=== PATIENT | female | born 1960 | race Two or more races ===

== ENCOUNTER → 2019-06-08 | Outpatient (CLI) | payer MEDICARE, MEDICAID ==
[~2019-06-08] MED LIST: ALBUTEROL SULF 2.5 MG/0.5ML(0.5%) NEB SOLN NEB ONE; ALBUTEROL SULF 2.5 MG/0.5ML(0.5%) NEB SOLN ONE; BUMETANIDE 1mg/4ml VIAL (0.25mg/ml) ONE; BUMETANIDE 2.5mg/10ml (0.25 mg/ml) INJ IV ONE; CATHFLO ACTIVASE (ALTEPLASE) 2 MG VIAL IV ONE; POTASSIUM CHL 10 Meq TABLET PO ONE; POTASSIUM CHL 20 Meq TABLET PO ONE; metOLazone 5 MG TAB ONE; metOLazone 5 MG TAB PO ONE
[2019-06-08 13:20] VITALS: BP 106/67
== END | disposition home or self-care (01) ==
LOC: CHF HDHVI 09:43
PROVIDERS: ATTEND Internal Medicine Cardiovascular Disease
DX: I25.10 Atherosclerotic heart disease of native coronary artery without angina pectoris (principal); I50.9 Heart failure, unspecified; E11.9 Type 2 diabetes mellitus without complications; R05 Cough; E66.9 Obesity, unspecified
CPT/HCPCS: 94640; 96374; G0463; J2997; J3490; 96365; 96366

== ENCOUNTER → 2019-08-09 | Outpatient (CLI) | payer MEDICARE, MEDICAID ==
[~2019-08-09] MED LIST changes: -ALBUTEROL SULF 2.5 MG/0.5ML(0.5%) NEB SOLN NEB ONE; -ALBUTEROL SULF 2.5 MG/0.5ML(0.5%) NEB SOLN ONE; +AMIO200T33 PO; +APIX5TAB OR; +BACITRACIN TOP OINT 1 UD PKG TOP ONE; +BUDE1SUS9; +BUME1TAB28 PO; -BUMETANIDE 1mg/4ml VIAL (0.25mg/ml) ONE; -BUMETANIDE 2.5mg/10ml (0.25 mg/ml) INJ IV ONE; -CATHFLO ACTIVASE (ALTEPLASE) 2 MG VIAL IV ONE; +CYANOCOBALAMIN (B-12) 1000 MCG/1 ML VIAL IM ONE; +CYANOCOBALAMIN (B-12) 1000 MCG/1 ML VIAL ONE; +CYCL0.05 EACHEYE; +CYCL10TA6 PO; +DOCU100C8 PO; +FOLI1TAB51 PO; +GABA300C10 PO; +HYDR-531 PO; +INSLISPI SC; +INSU100I4 SC; +INSU1INJ5 SC; +LACT10SO3 PO; +LEVEMIR SC; +LIDO5DIS21 TOP; +LORA2TAB12 PO; +MAGN400T40 PO; +MELA5TAB16 PO; +METO2.5T11 PO; +MOME200A INH; +MONT10TA34 PO; +MONT5CHW17 PO; +MORP1TAB12 PO; +NATE120T PO; +PANT40TA2 PO; +POLY33504 GT; +POTA10TA32 PO; +POTA10TA51 PO; -POTASSIUM CHL 10 Meq TABLET PO ONE; -POTASSIUM CHL 20 Meq TABLET PO ONE; +PRAM0.252 PO; +PRAM1TAB2 PO; +PREG100C PO; +PROM1SUP4 PO; +SENN8.6C PO; +TORS100T12 PO; +TORS20TA19 PO; +TRAZ100T3 PO; +TRAZ50TA2 PO; +ZOLP10TA6 PO; +[UNRECOGNIZED DRUG - CODE] IV; -metOLazone 5 MG TAB ONE; -metOLazone 5 MG TAB PO ONE
--- NOTE | 2019-08-09 10:30 | NUR ---
PT. TO CHF CLINIC FOR LABS AND RAMOS CATH DRESSING CHANGE PER PROTOCOL. PT. WITH 7.8 LB WT LOSS SINCE LAST VISIT AND CONTINUES TO FEEL BETTER. MD ORDERS RECEIVED AND CARRIED OUT. SEE NSG ORDERS.
--- NOTE | 2019-08-09 10:52 | NUR ---
MEDS: PT. MEDICATED WITH VIT. B12 1000MCG IM RT. DELT. PER MD ORDER.
--- NOTE | 2019-08-09 10:55 | NUR ---
LABS DRAWN AND SENT PER MD ORDER.
--- NOTE | 2019-08-09 11:00 | NUR ---
Port Needle Dressing Change Port Needle Dressing Change provided. See e-MAR for medications given during this visit. Vital signs stable. Pt tolerated procedure well. BACITRACIN OINTMENT APPLIED TO LATERAL ASPECT SCAB AREA PT. RECONNECTED TO HER HOME DOBUTAMINE DRIP RX'D BY OF [facility]. NO OBVIOUS SIGNS OR SYMPTOMS OF INFECTION NOTED.PT RESTARTED ON HER HOME DOBUTAMINE DRIP PER MD ORDER.
[2019-08-09 11:16] VITALS: BP 102/62
--- NOTE | 2019-08-09 11:16 | NUR ---
Discharge Instructions See e-MAR for any mediations given with this visit. Patient education given on disease process. Patient verbalized understanding. Previous labs reviewed. Patient discharged in stable condition with after care instructions and follow up appointment. PT. TO RTC IN ONE WEEK FOR MD ORDER.
[2019-08-09 12:39] LABS: Eosinophils # (auto) 0.1 10 ^3/uL (0-0.8); Hemoglobin 10.6 g/dL (12.2-16.2); Nucleated Red Blood Cells % 0.1 %
[2019-08-09 12:42] LABS: Basophils # (auto) 0.1 10 ^3/uL (0-0.2); Basophils % (auto) 0.9 % (0.0-2.0); Eosinophils % (auto) 2.6 % (0.0-7.0); Hematocrit 33.4 % (36.0-46.0); Lymphocytes # (auto) 0.6 10 ^3/uL (0.4-5.4); Lymphocytes % (auto) 11.1 % (10.0-50.0); Mean Corpuscular Hemoglobin 22.7 pg (28.0-32.0); Mean Corpuscular Hgb Conc. 31.6 g/dL (32.0-36.0); Mean Corpuscular Volume 71.7 fL (80.0-100.0); Monocytes # (auto) 0.8 10 ^3/uL (0-1.3); Monocytes % (auto) 13.4 % (0.0-12.0); Neutrophils # (auto) 4.1 10 ^3/uL (1.6-8.6); Platelet Count (auto) 131 10^3/uL (140-450); Red Blood Cells 4.66 10^6/uL (4.0-5.20); Red Cell Distribution Width 19.8 % (11.8-14.3); White Blood Cell 5.7 10^3/uL (4.4-10.8)
[2019-08-09 12:49] LABS: BUN/Creatinine Ratio 34.5; Calcium 9.3 mg/dL (8.5-10.1); Potassium 3.2 mmol/L (3.5-5.1)
== END | disposition home or self-care (01) ==
LOC: LAB 10:23 → MERGE 10:23
PROVIDERS: ATTEND Internal Medicine Cardiovascular Disease
DX: D64.9 Anemia, unspecified (principal); I13.0 Hypertensive heart and chronic kidney disease with heart failure and stage 1 through stage 4 chronic kidney disease, or unspecified chronic kidney disease; E11.22 Type 2 diabetes mellitus with diabetic chronic kidney disease; N18.3 Chronic kidney disease, stage 3 (moderate); I50.42 Chronic combined systolic (congestive) and diastolic (congestive) heart failure; I25.10 Atherosclerotic heart disease of native coronary artery without angina pectoris; F41.9 Anxiety disorder, unspecified; J44.9 Chronic obstructive pulmonary disease, unspecified; F32.9 Major depressive disorder, single episode, unspecified; E11.21 Type 2 diabetes mellitus with diabetic nephropathy; E11.42 Type 2 diabetes mellitus with diabetic polyneuropathy; M81.0 Age-related osteoporosis without current pathological fracture; G89.4 Chronic pain syndrome; M19.90 Unspecified osteoarthritis, unspecified site; Z79.01 Long term (current) use of anticoagulants; Z79.4 Long term (current) use of insulin; Z79.84 Long term (current) use of oral hypoglycemic drugs; Z87.891 Personal history of nicotine dependence; Z79.899 Other long term (current) drug therapy; Z90.710 Acquired absence of both cervix and uterus
CPT/HCPCS: 36415; 80048; 85025; 96372; G0463; J3420

== ENCOUNTER → 2019-09-18 | Outpatient (CLI) | payer MEDICARE, MEDICAID ==
[~2019-09-18] MED LIST changes: -BACITRACIN TOP OINT 1 UD PKG TOP ONE; -BUDE1SUS9; +BUMETANIDE 1mg/4ml VIAL (0.25mg/ml) ONE; +BUMETANIDE 2.5mg/10ml (0.25 mg/ml) INJ IV ONE; -CYCL10TA6 PO; +CYCL1TAB18 PO; -INSU100I4 SC; -INSU1INJ5 SC; +LORA2TAB10 PO; -LORA2TAB12 PO; -MOME200A INH; -POTA10TA32 PO; +POTA10TA79 PO; +POTASSIUM CHL 10 Meq TABLET PO ONE; +POTASSIUM CHL 20 Meq TABLET PO ONE; +PROM1SUP4 IV; -PROM1SUP4 PO; -TRAZ50TA2 PO
[2019-09-18 17:10] VITALS: BP 107/61
== END | disposition home or self-care (01) ==
LOC: CHF HDHVI 14:58 → MERGE 14:58
PROVIDERS: ATTEND Internal Medicine Cardiovascular Disease
DX: I13.0 Hypertensive heart and chronic kidney disease with heart failure and stage 1 through stage 4 chronic kidney disease, or unspecified chronic kidney disease (principal); E11.22 Type 2 diabetes mellitus with diabetic chronic kidney disease; N18.9 Chronic kidney disease, unspecified; I50.42 Chronic combined systolic (congestive) and diastolic (congestive) heart failure; E87.6 Hypokalemia; R53.83 Other fatigue; G89.29 Other chronic pain; M81.0 Age-related osteoporosis without current pathological fracture; F41.9 Anxiety disorder, unspecified; I25.10 Atherosclerotic heart disease of native coronary artery without angina pectoris; J44.9 Chronic obstructive pulmonary disease, unspecified; F32.9 Major depressive disorder, single episode, unspecified; E11.42 Type 2 diabetes mellitus with diabetic polyneuropathy; M19.90 Unspecified osteoarthritis, unspecified site; Z79.899 Other long term (current) drug therapy; Z90.710 Acquired absence of both cervix and uterus; Z79.01 Long term (current) use of anticoagulants; Z79.4 Long term (current) use of insulin; Z79.82 Long term (current) use of aspirin; Z87.891 Personal history of nicotine dependence
CPT/HCPCS: 96372; 96374; G0463; J1642; J3420; J3490

== ENCOUNTER → 2019-10-02 | Outpatient (CLI) | payer MEDICARE, MEDICAID ==
[~2019-10-02] MED LIST changes: -BUMETANIDE 1mg/4ml VIAL (0.25mg/ml) ONE; -BUMETANIDE 2.5mg/10ml (0.25 mg/ml) INJ IV ONE; -CYANOCOBALAMIN (B-12) 1000 MCG/1 ML VIAL IM ONE; -CYANOCOBALAMIN (B-12) 1000 MCG/1 ML VIAL ONE; +CYCL10TA6 PO; -CYCL1TAB18 PO; -LORA2TAB10 PO; +LORA2TAB12 PO; +POTA10TA32 PO; -POTA10TA79 PO; -POTASSIUM CHL 10 Meq TABLET PO ONE; -POTASSIUM CHL 20 Meq TABLET PO ONE
--- NOTE | 2019-10-02 13:39 | NUR ---
CHF PT ARRIVED TO THE CHF CLINIC FOR WEEKLY PORT CHANGE EVAL AND F/U. A/OX3. AMBULATORY WITH WALKER. PT IS CONTINUALLY FALLING ASLEEP IN CHAIR DURING VISIT AND ASSESSMENT. STATES ITS DUE TO NOT GETTING ENOUGH SLEEP DUE TO CHILDREN IN THE HOME. 8 LB INCREASE IN WT SINCE LAST VISIT ON 09/25/19. PT ALSO VERBALIZED THAT SHE HAD A FALL OUT OF BED A FEW DAYS AGO AND THAT SHE IS HAVING SOME L LEG AND HIP PAIN.
--- NOTE | 2019-10-02 13:48 | NUR ---
Elias Cath Removal Kc needle D/C'd. See e-MAR for medications given during this visit. Sterile occlusive dressing to site. Patient tolerated procedure well. Site benign NOTE REMOVED BY DEBRA WADSWORTH
--- NOTE | 2019-10-02 13:59 | NUR ---
Elias Cath Insertion 20 gauge Elias Cath inserted using sterile technique in the R upper chest with occlusive dressing over barr needle. Patient tolerated procedure well. Ordered labs drawn and sent. See e-MAR for medications given during this visit. DRESSING HAS DATE TIME AND INITIAL. NOTE INSERTED BY DEBRA WADSWORTH
[2019-10-02 14:19] VITALS: BP 93/57
--- NOTE | 2019-10-02 14:19 | NUR ---
Discharge Instructions See e-MAR for any mediations given with this visit. Patient education given on disease process. Patient verbalized understanding. Previous labs reviewed. Patient discharged in stable condition with after care instructions and follow up appointment. PT TO SEE MD GARCIA DIRECTLY AFTER LEAVING CHF CLINIC FOR EVAL AND TX. ESCORTED TO VISIT BY ANEESH WADSWORTH
[2019-10-02 14:43] LABS: Basophils # (auto) 0.1 10 ^3/uL (0-0.2); Eosinophils # (auto) 0.1 10 ^3/uL (0-0.8); Hematocrit 33.3 % (36.0-46.0); Hemoglobin 10.1 g/dL (12.2-16.2); Lymphocytes # (auto) 0.6 10 ^3/uL (0.4-5.4); Monocytes # (auto) 0.9 10 ^3/uL (0-1.3); Neutrophils # (auto) 6.1 10 ^3/uL (1.6-8.6); Nucleated Red Blood Cells % 0.1 %
[2019-10-02 14:44] LABS: Basophils % (auto) 0.7 % (0.0-2.0); Eosinophils % (auto) 1.5 % (0.0-7.0); Lymphocytes % (auto) 7.4 % (10.0-50.0); Mean Corpuscular Hemoglobin 21.1 pg (28.0-32.0); Mean Corpuscular Hgb Conc. 30.2 g/dL (32.0-36.0); Mean Corpuscular Volume 69.6 fL (80.0-100.0); Monocytes % (auto) 11.3 % (0.0-12.0); Neutrophils % (auto) 79.1 % (37.0-80.0); Platelet Count (auto) 108 10^3/uL (140-450); Red Blood Cells 4.78 10^6/uL (4.0-5.20); White Blood Cell 7.8 10^3/uL (4.4-10.8)
[2019-10-02 14:47] LABS: Red Cell Distribution Width 20.3 % (11.8-14.3)
[2019-10-02 15:21] LABS: Magnesium 2.8 mg/dL (1.6-2.6); Potassium 5.2 mmol/L (3.5-5.1)
== END | disposition home or self-care (01) ==
LOC: CHF HDHVI 13:42 → MERGE 13:42
PROVIDERS: ATTEND Internal Medicine Cardiovascular Disease
DX: M16.11 Unilateral primary osteoarthritis, right hip (principal); M85.88 Other specified disorders of bone density and structure, other site; D64.9 Anemia, unspecified; R00.2 Palpitations; E87.6 Hypokalemia; E11.42 Type 2 diabetes mellitus with diabetic polyneuropathy; I50.9 Heart failure, unspecified; R53.83 Other fatigue; R60.9 Edema, unspecified; G89.29 Other chronic pain; M79.662 Pain in left lower leg; W19.XXXA Unspecified fall, initial encounter; Y93.89 Activity, other specified; Y92.89 Other specified places as the place of occurrence of the external cause; Y99.8 Other external cause status
CPT/HCPCS: 36415; 73502; 73562; 82565; 83036; 83735; 84132; 84520; 85025; G0463

== ENCOUNTER 2019-11-20 12:26 | Inpatient (IN) | payer MEDICARE, MEDICAID ==
[~2019-11-20] VITALS: Ht 30.5 cm; Wt 194.0 kg
[~2019-11-20 12:26] MED LIST changes: -MONT5CHW17 PO; -POTA10TA51 PO; -PRAM0.252 PO; -PROM1SUP4 IV; +PROM1SUP4 PO; -TORS20TA19 PO
[2019-11-20] MEDS ORDERED: TRAZ50TA2 PO (15:37)
[2019-11-20] MEDS ORDERED: INSU1INJ5 SC (15:40)
[2019-11-20] MEDS ORDERED: DEXTROSE (50%) 50ML SYRG IV PRN (15:45)
[2019-11-20] MEDS ORDERED: NITROGLYCERIN 0.4 MG SL TAB SL PRN (16:00)
[2019-11-20] MEDS ORDERED: MORPHINE SULF INJ 2 MG/ML SYRINGE 1ML IV PRN (16:00)
--- NOTE | 2019-11-20 16:00 | NUR ---
DIRECT ADMIT DIRECT ADMIT FROM DR GARCIA. PATIENT PLACED ON TELE #83 READING 83 BPM PACED, PLACED ON 3 L N/C, WEIGHED BY BEDSCALE. BED IN LOWEST/LOCKED POSITION, BED RAILS UP X2, CALL LIGHT WITHIN REACH. IV PLACED 22G RFA AFTER 2 ATTEMPTS, WOUND CARE PHOTOS TAKEN PER PROTOCOL, MRSA SWAB SENT TO LAB PER PROTOCOL. PATIENT INSTRUCTED ON POC, VERBALIZED UNDERSTANDING. WILL CONTINUE TO MONITOR Addendum: 11/20/19 at 1800 by ALE FELIPE RN RN 16 HAITIAN LUBIN CATHETER PLACED, UA SENT TO LAB
[2019-11-20] MEDS ORDERED: BUDE1SUS9 (16:03)
[2019-11-20] MEDS ORDERED: MOME200A INH (16:04)
[2019-11-20] MEDS ORDERED: INSU100I4 SC (16:06)
[2019-11-20 16:30] VITALS: BP 124/65
[2019-11-20] MEDS: HYDROmorphone HCL 2 MG/ML VL IV PRN (16:49)
[2019-11-20] MEDS: DOBUTamine 1000MCG/ML 250 ML IV SCH (16:52)
[2019-11-20] MEDS: FUROSEMIDE INJECTION 100 MG in SODIUM CHL 0.9% 100 ML IV SCH ×2 (16:52→21:57)
[2019-11-20] MEDS: ACCU-CHEK COMFORT CURVE STRIP VI SCH ×2 (17:05→22:29)
[2019-11-20] MEDS: InsuLIN REG 1unit/0.01ml Soln (100units/ml) SC SCH ×2 (17:06→22:27)
[2019-11-20 17:48] LABS: Basophils # (auto) 0 10 ^3/uL (0-0.2); Basophils % (auto) 0.9 % (0.0-2.0); Eosinophils # (auto) 0.1 10 ^3/uL (0-0.8); Lymphocytes # (auto) 0.6 10 ^3/uL (0.4-5.4); Monocytes # (auto) 0.6 10 ^3/uL (0-1.3); Neutrophils # (auto) 3.8 10 ^3/uL (1.6-8.6); Platelet Count (auto) 100 10^3/uL (140-450); Red Blood Cells 4.45 10^6/uL (4.0-5.20)
[2019-11-20 17:49] LABS: Eosinophils % (auto) 1.5 % (0.0-7.0); Hematocrit 30.8 % (36.0-46.0); Hemoglobin 9.5 g/dL (12.2-16.2); Lymphocytes % (auto) 11.8 % (10.0-50.0); Mean Corpuscular Hemoglobin 21.3 pg (28.0-32.0); Mean Corpuscular Hgb Conc. 30.7 g/dL (32.0-36.0); Mean Corpuscular Volume 69.4 fL (80.0-100.0); Neutrophils % (auto) 74.8 % (37.0-80.0); White Blood Cell 5.1 10^3/uL (4.4-10.8)
[2019-11-20 17:51] LABS: Red Cell Distribution Width 20.7 % (11.8-14.3)
[2019-11-20] MEDS ORDERED: INSULIN LANTUS (GLARGINE) 1 /0.01ml (100units/ml) SC SCH (18:00)
[2019-11-20 18:09] LABS: BUN/Creatinine Ratio 31.6
[2019-11-20] MEDS: PROMETHAZINE HCL 25 MG/ML 1ML IV PRN (18:13)
--- NOTE | 2019-11-20 19:30 | NUR ---
Opening Shift Note Assumed care of patient, awake and alert. No S/S of distress/SOB or pain. Jo patent and draining to yellow urine output. Instructed on POC and to call for assist PRN, patient verbalized understanding. Bed in lowest position, call light within reach, will continue to monitor for changes Q1hr and PRN.
[2019-11-20 20:00] VITALS: BP 110/66
[2019-11-20] MEDS: GABAPENTIN 300 MG CAP PO SCH (21:45)
[2019-11-20] MEDS: MORPHINE SULF 15mg ER tab PO SCH (21:46)
[2019-11-20] MEDS: APIXABAN 5 MG TAB PO SCH (21:47)
[2019-11-20] MEDS: traZODone HCL 50 MG TAB PO SCH (21:47)
[2019-11-20] MEDS: PRAMIPEXOLE DIHYDROCHLORIDE MO 0.25 MG TAB PO SCH (21:48)
[2019-11-20 22:00] VITALS: BP 110/66
[2019-11-20] MEDS: INSULIN LANTUS (GLARGINE) 1 /0.01ml (100units/ml) SC SCH (22:28)
[2019-11-20 23:26] LABS: Urine Bacteria FEW /hpf (None Seen); Urine Blood Negative /uL (Negative); Urine Hyaline Cast FEW /lpf (0 - 2); Urine WBC 6 /hpf (0 - 5)
[2019-11-21] MEDS: HYDROmorphone HCL 2 MG/ML VL IV PRN ×4 (00:09→19:39)
[2019-11-21] MEDS: PREGABALIN 25 MG CAP PO SCH ×2 (00:30→22:21)
[2019-11-21] MEDS: DOBUTamine 1000MCG/ML 250 ML IV SCH ×3 (00:46→19:40)
[2019-11-21] MEDS: FUROSEMIDE INJECTION 100 MG in SODIUM CHL 0.9% 100 ML IV SCH ×5 (02:43→22:19)
[2019-11-21 05:00] VITALS: BP 121/61
[2019-11-21] MEDS: GABAPENTIN 300 MG CAP PO SCH ×3 (06:16→22:22)
[2019-11-21] MEDS: InsuLIN REG 1unit/0.01ml Soln (100units/ml) SC SCH ×4 (06:16→22:00)
[2019-11-21] MEDS: ACCU-CHEK COMFORT CURVE STRIP VI SCH ×4 (06:16→22:22)
[2019-11-21] MEDS: PROMETHAZINE HCL 25 MG/ML 1ML IV PRN ×3 (06:37→22:15)
[2019-11-21 07:04] LABS: Calcium 8.5 mg/dL (8.5-10.1); Potassium 3.3 mmol/L (3.5-5.1)
[2019-11-21] MEDS ORDERED: POTASSIUM EFFERVESENT TAB 25 MEQ GT ONE (07:45)
[2019-11-21 09:00] VITALS: BP 109/76
[2019-11-21] MEDS: MORPHINE SULF 15mg ER tab PO SCH ×2 (10:26→22:22)
[2019-11-21] MEDS: AMIODARONE HCL 200 MG TAB PO SCH (10:26)
[2019-11-21] MEDS: MONTELUKAST SODIUM 10 MG TAB PO SCH (10:26)
[2019-11-21] MEDS: metOLazone 5 MG TAB PO SCH (10:27)
[2019-11-21] MEDS: APIXABAN 5 MG TAB PO SCH ×2 (10:28→22:22)
[2019-11-21] MEDS: POTASSIUM CHL 20 Meq TABLET PO SCH (10:29)
[2019-11-21 13:00] VITALS: BP 116/75
--- NOTE | 2019-11-21 13:30 | NUR ---
WOUND CARE NOTE: IN TO SEE PATIENT AT THIS TIME FOR SKIN INTEGRITY. PATIENT IS WELL KNOWN TO WOUND CARE TEAM, WITH MULTIPLE ADMISSIONS THIS YEAR FOR EXACERBATION OF HER CHF. SHE RETURNS TO [facility] DIRECT ADMIT WITH SAME DIAGNOSIS. CURRENT TASIA SCORE IS 18. PATIENT CAN SELF TURN/REPOSITION SELF, BUT HAS CHRONIC PRESSURE ULCER TO SACRUM FROM IMMOBILITY AT HOME. WOUND PHOTOS WERE TAKEN OF HER MANY WOUNDS AT TIME OF ADMIT BY BEDSIDE NURSE FOR REFERENCE. CanoP AIR MATTRESS ORDERED THIS AM. PATIENT TO BE PLACED, PENDING DELIVERY BY [facility]. PATIENT HAS EARLY STAGE 3 PRESSURE ULCER TO MEDIAL SACRUM, WITH SOME MACERATION NOTED TO PERIWOUND. PATIENT DENIES WEARING DIAPERS, BUT HAS SOME MASD NOTED TO THE AREA. APPLIED ZGUARD, OPTIFOAM GENTLE SACRAL DRESSING TO WOUND. SHE HAS SCABBED ABRASIONS TO THE RIGHT FOREARM, SCABBED/CLOSED SMALL VENOUS STASIS ULCERATIONS TO BLE, WITH ERYTHEMA, HEMOSIDERIN STAIN NOTED. LEFT OPEN TO AIR.BILATERAL FEET HAVE MULTIPLE SMALL DFU'S NOTED TO PLANTAR FOREFEET AND TOES. APPLIED THERAHONEY, OPTIFOAM GENTLE DRESSINGS. ALL WOUND STATS CAN BE FOUND WITHIN WOUND ASSESSMENT INTERVENTION, LINKED WITH THIS NOTE. RECOMMEND: DAILY DRESSING CHANGE TO SACRAL WOUND, EOD/PRN DRESSING CHANGES TO BILATERAL FEET, DIETARY CONSULT, FREQUENT TURN SCHEDULE Q 2 HOURS, PRN CONDITION PERMITS, WITH PRESSURE REDISTRIBUTION USING PILLOWS/WEDGES, SKIN/WOUND CARE PLAN, SPECIALTY AIR MATTRESS, CONTINUED MONITORING BY WOUND CARE TEAM Addendum: 11/21/19 at 1755 by Daria Taylor RN Amended: Links added.
[2019-11-21] MEDS ORDERED: NYSTATIN (MOUTH-THROAT) 500,000 UNITS/5 ML SUSP MT SCH (14:00)
[2019-11-21 17:00] VITALS: BP 110/82
[2019-11-21] MEDS: NYSTATIN (MOUTH-THROAT) 500,000 UNITS/5 ML SUSP MT SCH ×2 (17:24→22:22)
--- NOTE | 2019-11-21 19:40 | NUR ---
Opening Shift Note Assumed care of patient, awake and alert. No S/S of distress/SOB. Instructed on POC and to call for assist PRN, patient verbalized understanding. Bed in lowest position, call light within reach, will continue to monitor for changes Q1hr and PRN.
[2019-11-21 22:00] VITALS: BP 101/85
[2019-11-21] MEDS: INSULIN LANTUS (GLARGINE) 1 /0.01ml (100units/ml) SC SCH (22:00)
[2019-11-21] MEDS: PRAMIPEXOLE DIHYDROCHLORIDE MO 0.25 MG TAB PO SCH (22:21)
[2019-11-21] MEDS: traZODone HCL 50 MG TAB PO SCH (22:22)
[2019-11-22] MEDS: HYDROmorphone HCL 2 MG/ML VL IV PRN ×3 (02:07→14:53)
[2019-11-22] MEDS: FUROSEMIDE INJECTION 100 MG in SODIUM CHL 0.9% 100 ML IV SCH ×4 (03:30→17:41)
[2019-11-22 05:00] VITALS: BP 119/72
[2019-11-22 05:17] LABS: Calcium 8.8 mg/dL (8.5-10.1)
[2019-11-22 05:20] LABS: BUN/Creatinine Ratio 33.8; Potassium 2.7 mmol/L (3.5-5.1)
--- NOTE | 2019-11-22 05:20 | NUR ---
Received a critical Potassium of 2.7, jamal palomino MD
[2019-11-22] MEDS: DOBUTamine 1000MCG/ML 250 ML IV SCH ×3 (05:28→20:36)
--- NOTE | 2019-11-22 05:53 | NUR ---
Paged Dr. Lr's exchange and left a message, awaiting call back
[2019-11-22] MEDS: NYSTATIN (MOUTH-THROAT) 500,000 UNITS/5 ML SUSP MT SCH ×4 (06:32→23:27)
[2019-11-22] MEDS: GABAPENTIN 300 MG CAP PO SCH ×3 (06:32→23:31)
[2019-11-22] MEDS: ACCU-CHEK COMFORT CURVE STRIP VI SCH ×4 (06:32→21:55)
[2019-11-22] MEDS: PROMETHAZINE HCL 25 MG/ML 1ML IV PRN ×2 (06:32→17:40)
[2019-11-22] MEDS: InsuLIN REG 1unit/0.01ml Soln (100units/ml) SC SCH ×4 (06:33→23:35)
--- NOTE | 2019-11-22 06:54 | NUR ---
Received new order from jamal Garcia put in order Addendum: 11/22/19 at 0803 by Yuly Pappas RN RN Received order to give 160 mEq KCL PO now then 40 mEq KCL PO q4H x 4 doses
[2019-11-22] MEDS ORDERED: POTASSIUM CHL 20 Meq TABLET PO ONE (07:00)
--- NOTE | 2019-11-22 07:30 | NUR ---
Opening Shift Note Assumed care of patient, awake and alert. Respirations are even and unlabored. No S/S of distress/SOB or pain. Patient has Dobutamine infusing at 5 mcg/kg/min, Lasix infusing at 22 ml/hr. Jo catheter hanging below bladder, is free of kinks and is draining to gravity. Bed is low, locked with 2x side rails up. Call light is within reach. Instructed on POC and to call for assist PRN, will continue to monitor for changes Q1hr and PRN.
[2019-11-22] MEDS: POTASSIUM CHL 20 Meq TABLET PO SCH ×6 (08:42→20:58)
[2019-11-22 09:00] VITALS: BP 113/72
[2019-11-22] MEDS: AMIODARONE HCL 200 MG TAB PO SCH (10:22)
[2019-11-22] MEDS: PREGABALIN 25 MG CAP PO SCH ×2 (10:22→23:29)
[2019-11-22] MEDS: metOLazone 5 MG TAB PO SCH (10:23)
[2019-11-22] MEDS: MONTELUKAST SODIUM 10 MG TAB PO SCH (10:24)
[2019-11-22] MEDS: APIXABAN 5 MG TAB PO SCH ×2 (10:24→23:29)
[2019-11-22] MEDS: MORPHINE SULF 15mg ER tab PO SCH ×2 (10:24→23:31)
[2019-11-22 14:20] VITALS: BP 116/77
--- NOTE | 2019-11-22 14:38 | NUR ---
Consult Consider Renal Specific 70g protein, Nephrovite and Vit C BID Est energy needs 3940-6577 kcal (18-20 kcal/kg BW 98kg) Est protein needs 59-74g (0.6-0.75g/kg Bw 98kg, r/t elevated RFT, CKD, no HD, inc if labs improved or HD started) Will reasess prn Addendum: 11/22/19 at [address] Amended: Links added.
[2019-11-22] MEDS ORDERED: MAGNESIUM CITRATE SOLUTION 300 ML BTL PO ONE (14:45)
[2019-11-22 17:10] VITALS: BP 108/74
[2019-11-22 22:00] VITALS: BP 104/72
[2019-11-22] MEDS: PRAMIPEXOLE DIHYDROCHLORIDE MO 0.25 MG TAB PO SCH (22:55)
[2019-11-22] MEDS: traZODone HCL 50 MG TAB PO SCH (23:29)
[2019-11-22] MEDS: INSULIN LANTUS (GLARGINE) 1 /0.01ml (100units/ml) SC SCH (23:37)
[2019-11-23] MEDS: FUROSEMIDE INJECTION 100 MG in SODIUM CHL 0.9% 100 ML IV SCH ×5 (00:11→20:30)
[2019-11-23] MEDS: POTASSIUM CHL 20 Meq TABLET PO SCH ×2 (00:12→09:35)
[2019-11-23] MEDS: HYDROmorphone HCL 2 MG/ML VL IV PRN ×4 (00:15→22:31)
[2019-11-23] MEDS: PROMETHAZINE HCL 25 MG/ML 1ML IV PRN ×4 (00:41→22:31)
[2019-11-23 05:30] VITALS: BP 106/63
[2019-11-23] MEDS: DOBUTamine 1000MCG/ML 250 ML IV SCH ×3 (06:30→22:38)
[2019-11-23 06:53] LABS: BUN/Creatinine Ratio 32.8; Calcium 8.8 mg/dL (8.5-10.1); Potassium 3.8 mmol/L (3.5-5.1)
[2019-11-23] MEDS: InsuLIN REG 1unit/0.01ml Soln (100units/ml) SC SCH ×4 (07:00→22:35)
[2019-11-23] MEDS: NYSTATIN (MOUTH-THROAT) 500,000 UNITS/5 ML SUSP MT SCH ×4 (07:03→22:10)
[2019-11-23] MEDS: GABAPENTIN 300 MG CAP PO SCH ×3 (07:04→22:11)
[2019-11-23] MEDS: ACCU-CHEK COMFORT CURVE STRIP VI SCH ×4 (07:04→22:13)
[2019-11-23 08:00] VITALS: BP_SYST 103; BP_SYST 114; BP_DIAS 65; BP_DIAS 70
--- NOTE | 2019-11-23 08:00 | NUR ---
ASSESSMENT NOTE PT IS RESTING IN BED IN LOW GUZMÁN POSITION AT LEFT SIDE, ALERT ORIENTED X4, NO DISTRESS NOTED, FEEL SLEEPY FROM DILAUDID IV AND PHENERGAN, ABLE TO SELF REPOSITION AND VERBALIS HER DEMANDS, LUBIN CATHETER TO GRAVITY, LASIX AND DOBUTAMINE DRIP CONTINUE INFUSING, TOLERATED WELL, CALL LIGHT WITHIN REACH
--- NOTE | 2019-11-23 08:15 | NUR ---
CONTINUE SKIN ASSESSMENT PT HAS CLEAN OPTIFOAM DRESSING AT THE RT FOOT PLANTER AND AT THE FIFTH TOE, DRY CLEAN OPTIFOAM ON KNEE GREAT TOE, ALSO AT THE SACRUM AREA, PT ENCOURAGE TO CHANGE HER POSITION EVERY 2 HOURS FROM SIDE TO SIDE, VERBALIS UNDERSTANDING
[2019-11-23] MEDS: APIXABAN 5 MG TAB PO SCH ×2 (09:34→22:10)
[2019-11-23] MEDS: MONTELUKAST SODIUM 10 MG TAB PO SCH (09:34)
[2019-11-23] MEDS: AMIODARONE HCL 200 MG TAB PO SCH (09:35)
[2019-11-23] MEDS: metOLazone 5 MG TAB PO SCH (09:36)
[2019-11-23] MEDS: MORPHINE SULF 15mg ER tab PO SCH ×2 (10:00→22:13)
[2019-11-23] MEDS: PREGABALIN 25 MG CAP PO SCH ×2 (13:33→22:11)
[2019-11-23 14:00] VITALS: BP 96/63
--- NOTE | 2019-11-23 14:00 | NUR ---
PT IS SLEEPING AT THIS TIME, WAKE UP ON HER MEALS TIME, NO DISTRESS NOTED
[2019-11-23 17:00] VITALS: BP 107/75
--- NOTE | 2019-11-23 18:00 | NUR ---
WOUND CARE CLEANSE SACRUM WITH NS, PAT IT TO DRY, Z GUARD APPLIED, COVER WITH OPTIFOAM
--- NOTE | 2019-11-23 18:42 | NUR ---
PT CONTINUE STABLE, CONTINUE MONITORING
[2019-11-23 20:00] VITALS: BP 114/70
[2019-11-23 22:00] VITALS: BP 104/62
[2019-11-23] MEDS: traZODone HCL 50 MG TAB PO SCH (22:10)
[2019-11-23] MEDS: PRAMIPEXOLE DIHYDROCHLORIDE MO 0.25 MG TAB PO SCH (22:33)
[2019-11-23] MEDS: INSULIN LANTUS (GLARGINE) 1 /0.01ml (100units/ml) SC SCH (22:36)
[2019-11-24] MEDS: FUROSEMIDE INJECTION 100 MG in SODIUM CHL 0.9% 100 ML IV SCH ×5 (00:50→19:20)
[2019-11-24] MEDS: HYDROmorphone HCL 2 MG/ML VL IV PRN ×3 (04:55→17:42)
[2019-11-24 05:00] VITALS: BP 109/63
[2019-11-24] MEDS: PROMETHAZINE HCL 25 MG/ML 1ML IV PRN ×3 (05:10→17:42)
[2019-11-24 05:36] LABS: Calcium 8.8 mg/dL (8.5-10.1)
[2019-11-24 05:39] LABS: BUN/Creatinine Ratio 29.5
--- NOTE | 2019-11-24 06:05 | NUR ---
Critical Lab, RN Notified: Received critical lab of the patient. Notified primary RN of critical lab value.
[2019-11-24 06:06] LABS: Potassium 2.7 mmol/L (3.5-5.1)
[2019-11-24] MEDS: NYSTATIN (MOUTH-THROAT) 500,000 UNITS/5 ML SUSP MT SCH ×4 (06:17→22:49)
[2019-11-24] MEDS: GABAPENTIN 300 MG CAP PO SCH ×3 (06:18→22:49)
[2019-11-24] MEDS: InsuLIN REG 1unit/0.01ml Soln (100units/ml) SC SCH ×4 (06:20→23:00)
[2019-11-24] MEDS: ACCU-CHEK COMFORT CURVE STRIP VI SCH ×4 (06:20→22:58)
[2019-11-24 08:00] VITALS: BP 109/63
[2019-11-24] MEDS ORDERED: POTASSIUM CHL 20 Meq TABLET PO ONE (08:00)
--- NOTE | 2019-11-24 08:12 | NUR ---
DR GARCIA CALLED WITH NEW ORDERS WITH ADDITIONAL POTASSIUM PO, 40 MEQ Q 2H X 4 DOSES, PHARMACY MADE AWARE TO MAKE SURE THE ORDERS ENTER ACCURATE
[2019-11-24] MEDS: DOBUTamine 1000MCG/ML 250 ML IV SCH ×2 (08:37→17:20)
[2019-11-24 09:00] VITALS: BP 93/57
[2019-11-24] MEDS: AMIODARONE HCL 200 MG TAB PO SCH (09:34)
[2019-11-24] MEDS: APIXABAN 5 MG TAB PO SCH ×2 (09:35→22:49)
[2019-11-24] MEDS: POTASSIUM CHL 20 Meq TABLET PO SCH ×5 (09:35→15:46)
[2019-11-24] MEDS: PREGABALIN 25 MG CAP PO SCH ×2 (09:35→22:51)
[2019-11-24] MEDS: MONTELUKAST SODIUM 10 MG TAB PO SCH (09:35)
[2019-11-24] MEDS: metOLazone 5 MG TAB PO SCH (09:36)
[2019-11-24] MEDS: MORPHINE SULF 15mg ER tab PO SCH ×3 (10:00→22:50)
--- NOTE | 2019-11-24 11:40 | NUR ---
IV insertion IV access obtained, via clean sterile technique by inserting 22 gauge catheter at after attempt(s). IV secured properly. No trauma to site. Patient tolerated procedure well.
[2019-11-24 13:00] VITALS: BP 103/70
--- NOTE | 2019-11-24 14:54 | NUR ---
LUBIN CATHETER CARE GIVEN TO PT, TOLERATED WELL
--- NOTE | 2019-11-24 18:25 | NUR ---
PT CONTINUE STABLE , RESTING IN BED COMFORTABLY EATING DINNER, NO DISTRESS NOTED, CONTINUE MONITORING
--- NOTE | 2019-11-24 18:47 | NUR ---
PATIENT CALLED, STATED I FEEL VERY ANXIOUS, SOMETHING WRONG WITH ME >, SPOKE WITH DR GARCIA, NEW ORDERS OBTAIN
[2019-11-24] MEDS ORDERED: LORazepam 2MG/ML-1ML VIAL IV ONE (19:00)
[2019-11-24 22:00] VITALS: BP 104/68
[2019-11-24] MEDS: INSULIN LANTUS (GLARGINE) 1 /0.01ml (100units/ml) SC SCH (22:00)
[2019-11-24] MEDS ORDERED: PRAMIPEXOLE DIHYDROCHLORIDE MO 0.25 MG TAB ONE ×2 (22:44→22:46)
[2019-11-24] MEDS: traZODone HCL 50 MG TAB PO SCH (22:50)
[2019-11-24] MEDS: PRAMIPEXOLE DIHYDROCHLORIDE MO 0.25 MG TAB PO SCH (22:56)
[2019-11-25] MEDS: FUROSEMIDE INJECTION 100 MG in SODIUM CHL 0.9% 100 ML IV SCH ×5 (01:25→21:07)
[2019-11-25] MEDS: DOBUTamine 1000MCG/ML 250 ML IV SCH ×3 (01:26→18:23)
[2019-11-25 06:00] VITALS: BP 106/66
[2019-11-25] MEDS: GABAPENTIN 300 MG CAP PO SCH ×3 (06:26→22:33)
[2019-11-25] MEDS: ACCU-CHEK COMFORT CURVE STRIP VI SCH ×4 (06:26→22:19)
[2019-11-25] MEDS: NYSTATIN (MOUTH-THROAT) 500,000 UNITS/5 ML SUSP MT SCH ×4 (06:26→22:31)
[2019-11-25] MEDS: PROMETHAZINE HCL 25 MG/ML 1ML IV PRN ×3 (06:36→18:46)
[2019-11-25] MEDS: HYDROmorphone HCL 2 MG/ML VL IV PRN ×3 (06:36→18:47)
[2019-11-25 06:37] LABS: Calcium 8.9 mg/dL (8.5-10.1)
[2019-11-25] MEDS: InsuLIN REG 1unit/0.01ml Soln (100units/ml) SC SCH ×4 (06:38→22:00)
[2019-11-25 06:40] LABS: BUN/Creatinine Ratio 30.2
[2019-11-25 06:45] LABS: Potassium 2.6 mmol/L (3.5-5.1)
--- NOTE | 2019-11-25 07:21 | NUR ---
Critical lab Received critical lab of K 2.6, endorsed to amrik RN to receive order from Be LYNN.
--- NOTE | 2019-11-25 07:39 | NUR ---
DR. Lr paged regarding K 2.6. Awaiting to call back.
[2019-11-25 08:35] VITALS: BP 103/69
--- NOTE | 2019-11-25 08:48 | NUR ---
Received a call from Dr. Lr with new orders to give Potassium K rider 80 MEQ, noted and carried it out.
[2019-11-25] MEDS ORDERED: POTASSIUM CHL 20MEQ/100ML 100 ML IV ONE (09:00)
[2019-11-25] MEDS: APIXABAN 5 MG TAB PO SCH ×2 (09:54→22:32)
[2019-11-25] MEDS: MONTELUKAST SODIUM 10 MG TAB PO SCH (09:55)
[2019-11-25] MEDS: AMIODARONE HCL 200 MG TAB PO SCH (09:55)
[2019-11-25] MEDS: POTASSIUM CHL 20 Meq TABLET PO SCH (09:56)
[2019-11-25] MEDS: MORPHINE SULF 15mg ER tab PO SCH ×2 (09:56→22:34)
[2019-11-25] MEDS: metOLazone 5 MG TAB PO SCH (09:57)
[2019-11-25] MEDS: PREGABALIN 25 MG CAP PO SCH ×2 (09:57→22:32)
[2019-11-25 13:14] VITALS: BP 99/65
--- NOTE | 2019-11-25 15:00 | NUR ---
Wound dressing changed to bilateral foot.
[2019-11-25 16:39] VITALS: BP 102/71
--- NOTE | 2019-11-25 16:54 | NUR ---
Nutrition Followup NotesPt wt is 90.9 kg Pt was awake with no relatives at bedside when rounded this morning. Pt is with a 2g Sodium diet, appetite is good aeb 100% PO intake over 4 meals per RN doc. Pt with no distress. Will continue to monitor PO status, skin status, pertinent labs and weight trends. Will f/u in 3-5 days. Est energy needs 7735-7494 kcal (18-20 kcal/kg BW 98kg) Est protein needs 59-74g (0.6-0.75g/kg Bw 98kg, r/t elevated RFT, CKD, no HD, inc if labs improved or HD started) Will reassess prn LABS: K 2.6 L, BUN 62 H, Cr 2.05 H, GFR 26 L, Gluc 111 H GI: Pt had 2 BM on 11/22 per RN doc BS: 21 low risk. Refer to wound assessment report for full details. PES: Obesity r/t caloric intake in excess of needs aeb pt with BMI of 34.9 kg/m2 Altered nutrition related labs r/t chronic medical conditions aeb pt with elevated RFTs, hyperglycemia Comments 1) Continue to monitor po intake, labs, skin 2) Refer pt to [facility]PD on DC 3) Continue current plan of care
--- NOTE | 2019-11-25 19:21 | NUR ---
Opening Shift Note Assumed care of patient after receiving report from ERMELINDA Porter. Patient is awake and alert with no S/S of distress/SOB or pain. Call light within reach, bed in lowest locked position x2 side rails. Instructed on POC and to call for assist PRN, will continue to monitor for changes Q1hr and PRN.
[2019-11-25 21:30] VITALS: BP 104/67
--- NOTE | 2019-11-25 22:19 | NUR ---
Patient refused medication Patient refused Regular insulin scheduled at 22:00, only wanted 50 units of Lantus. Patient was on the phone with family member and asked family member what she should take and stated that this family member handled her medication and insulin coverage. Will continue to monitor.
[2019-11-25] MEDS: traZODone HCL 50 MG TAB PO SCH (22:32)
[2019-11-25] MEDS: PRAMIPEXOLE DIHYDROCHLORIDE MO 0.25 MG TAB PO SCH (22:33)
[2019-11-25] MEDS: INSULIN LANTUS (GLARGINE) 1 /0.01ml (100units/ml) SC SCH (22:34)
[2019-11-26] MEDS: FUROSEMIDE INJECTION 100 MG in SODIUM CHL 0.9% 100 ML IV SCH ×2 (02:03→06:26)
[2019-11-26] MEDS: DOBUTamine 1000MCG/ML 250 ML IV SCH ×3 (03:39→21:02)
[2019-11-26] MEDS: HYDROmorphone HCL 2 MG/ML VL IV PRN ×2 (03:39→12:07)
[2019-11-26] MEDS: PROMETHAZINE HCL 25 MG/ML 1ML IV PRN ×3 (03:39→22:42)
--- NOTE | 2019-11-26 03:53 | NUR ---
Dressing change Performed dressing change per MD order to sacrum. Optifoam gentle applied after cleansing area and using barrier cream. Patient tolerated intervention well. Will continue to monitor.
[2019-11-26 05:00] VITALS: BP 101/64
[2019-11-26] MEDS: ACCU-CHEK COMFORT CURVE STRIP VI SCH ×4 (06:21→22:41)
[2019-11-26] MEDS: InsuLIN REG 1unit/0.01ml Soln (100units/ml) SC SCH ×4 (06:21→22:43)
[2019-11-26] MEDS: NYSTATIN (MOUTH-THROAT) 500,000 UNITS/5 ML SUSP MT SCH ×4 (06:25→22:39)
[2019-11-26] MEDS: GABAPENTIN 300 MG CAP PO SCH ×3 (06:26→22:40)
[2019-11-26 07:25] LABS: BUN/Creatinine Ratio 28.7; Calcium 9.2 mg/dL (8.5-10.1)
[2019-11-26 07:28] LABS: Potassium 2.3 mmol/L (3.5-5.1)
--- NOTE | 2019-11-26 07:30 | NUR ---
DR. Lr paged regarding K 2.3. Awaiting to call back.
--- NOTE | 2019-11-26 08:02 | NUR ---
Received new orders from Dr. Lr, noted and carried it out.
[2019-11-26] MEDS: POTASSIUM CHL 20 Meq TABLET PO SCH ×5 (08:14→16:51)
[2019-11-26 09:03] VITALS: BP 95/62
[2019-11-26] MEDS: AMIODARONE HCL 200 MG TAB PO SCH (09:56)
[2019-11-26] MEDS: MONTELUKAST SODIUM 10 MG TAB PO SCH (09:56)
[2019-11-26] MEDS: APIXABAN 5 MG TAB PO SCH ×2 (09:56→22:40)
[2019-11-26] MEDS: MORPHINE SULF 15mg ER tab PO SCH ×2 (09:57→22:41)
[2019-11-26] MEDS: metOLazone 5 MG TAB PO SCH (09:58)
[2019-11-26] MEDS: SPIRONOLACTONE 25 MG TAB PO SCH ×2 (10:04→16:51)
[2019-11-26] MEDS: PREGABALIN 25 MG CAP PO SCH ×2 (10:38→22:40)
[2019-11-26 12:50] VITALS: BP 105/65
--- NOTE | 2019-11-26 16:12 | NUR ---
assessment Patient is a 59 year old female who is alert and oriented. Patients cognitive abilities are intact. Prior to admission patient lived home with family and functioned with assistance. Per patient she will return home to her prior living arrangements post discharge and family will transport her home. Patients PCP is Dr Lr. Patient has a fww, cane, wheelchair, 02, c-pap and nebulizer for home use. Patient is on service with [employer]. Patient will need a resumption order on discharge. Patient has an [facility] caregiver. Patient informed me she came back to ER due to swelling and severe abdominal pain. Patient informed me this has been going on since her last discharge. Patient wants the swelling and pain resolved prior to discharge. I will continue to monitor and follow up as appropriate. I informed patient she has a right to speak to a oncology social worker regarding all care. I informed patient she has a right to participate in any and all discharge planning. Patient has a POA and advanced directive. Patient verbalized understanding and agreed to discharge plan. Addendum: 11/26/19 at 1616 by Angélica AUGUSTINE Amended: Links added.
[2019-11-26 16:32] VITALS: BP 110/55
--- NOTE | 2019-11-26 19:10 | NUR ---
Opening Shift Note Assumed care of patient after receiving report from amrik Porter RN. Patient is awake and alert with no S/S of distress/SOB or pain. Call light within reach, bed in lowest locked position x2 side rails, HOB semi fowlers. Instructed on POC and to call for assist PRN, will continue to monitor for changes Q1hr and PRN.
[2019-11-26 22:00] VITALS: BP 106/65
[2019-11-26] MEDS: PRAMIPEXOLE DIHYDROCHLORIDE MO 0.25 MG TAB PO SCH (22:00)
[2019-11-26] MEDS: INSULIN LANTUS (GLARGINE) 1 /0.01ml (100units/ml) SC SCH (22:00)
[2019-11-26] MEDS: traZODone HCL 50 MG TAB PO SCH (22:39)
[2019-11-26] MEDS ORDERED: PRAMIPEXOLE DIHYDROCHLORIDE MO 0.25 MG TAB ONE ×3 (22:46→22:48)
[2019-11-27] MEDS: HYDROmorphone HCL 2 MG/ML VL IV PRN ×4 (02:14→20:25)
[2019-11-27 05:09] VITALS: BP 115/79
[2019-11-27 06:06] LABS: Potassium 3.6 mmol/L (3.5-5.1)
[2019-11-27 06:14] LABS: BUN/Creatinine Ratio 28.6; Calcium 9.2 mg/dL (8.5-10.1)
[2019-11-27] MEDS: DOBUTamine 1000MCG/ML 250 ML IV SCH ×2 (06:20→15:15)
[2019-11-27] MEDS: NYSTATIN (MOUTH-THROAT) 500,000 UNITS/5 ML SUSP MT SCH ×4 (06:20→22:49)
[2019-11-27] MEDS: SPIRONOLACTONE 25 MG TAB PO SCH ×2 (06:20→17:49)
[2019-11-27] MEDS: PROMETHAZINE HCL 25 MG/ML 1ML IV PRN ×3 (06:21→20:25)
[2019-11-27] MEDS: ACCU-CHEK COMFORT CURVE STRIP VI SCH ×4 (06:21→23:09)
[2019-11-27] MEDS: GABAPENTIN 300 MG CAP PO SCH ×3 (06:21→22:55)
[2019-11-27] MEDS: InsuLIN REG 1unit/0.01ml Soln (100units/ml) SC SCH ×4 (06:23→23:08)
[2019-11-27 09:00] VITALS: BP 116/81
[2019-11-27] MEDS: AMIODARONE HCL 200 MG TAB PO SCH (09:47)
[2019-11-27] MEDS: APIXABAN 5 MG TAB PO SCH ×2 (09:48→22:50)
[2019-11-27] MEDS: metOLazone 5 MG TAB PO SCH (09:50)
[2019-11-27] MEDS: MONTELUKAST SODIUM 10 MG TAB PO SCH (09:50)
[2019-11-27] MEDS: POTASSIUM CHL 20 Meq TABLET PO SCH ×4 (09:50→22:56)
[2019-11-27] MEDS: MORPHINE SULF 15mg ER tab PO SCH ×2 (09:50→22:55)
[2019-11-27] MEDS: PREGABALIN 25 MG CAP PO SCH ×2 (09:50→22:53)
[2019-11-27 13:00] VITALS: BP_SYST 110; BP_SYST 114; BP_DIAS 65; BP_DIAS 73
[2019-11-27] MEDS: FUROSEMIDE INJECTION 100 MG in SODIUM CHL 0.9% 100 ML IV SCH ×2 (15:15→20:25)
[2019-11-27 17:00] VITALS: BP 114/76
--- NOTE | 2019-11-27 19:47 | NUR ---
Opening Shift Note Received report and assumed care of patient. Patient is awake and alert. No signs or symptoms of distress noted. Instructed patient on plan of care and to call for assistance as needed. Will continue to monitor.
--- NOTE | 2019-11-27 20:25 | NUR ---
Pain Medication Administration Patient complaining of leg pain 10/10. Will administer pain medication per MD order. Will reassess pain level and will continue to monitor.
--- NOTE | 2019-11-27 20:55 | NUR ---
Pain Level Reassessment Patient's pain level reassessed to be 5/10. Patient states pain level is tolerable. Patient repositioned for comfort. Will continue to monitor.
[2019-11-27] MEDS: INSULIN LANTUS (GLARGINE) 1 /0.01ml (100units/ml) SC SCH (22:00)
[2019-11-27 22:05] VITALS: BP 111/64
[2019-11-27] MEDS: traZODone HCL 50 MG TAB PO SCH (22:49)
[2019-11-27] MEDS: PRAMIPEXOLE DIHYDROCHLORIDE MO 0.25 MG TAB PO SCH (22:54)
[2019-11-28] MEDS: DOBUTamine 1000MCG/ML 250 ML IV SCH ×3 (01:11→18:03)
[2019-11-28] MEDS: FUROSEMIDE INJECTION 100 MG in SODIUM CHL 0.9% 100 ML IV SCH ×4 (01:13→18:03)
[2019-11-28 05:05] VITALS: BP 107/67
[2019-11-28 06:22] LABS: Potassium 3.4 mmol/L (3.5-5.1)
[2019-11-28 06:31] LABS: BUN/Creatinine Ratio 32.4; Calcium 9.3 mg/dL (8.5-10.1)
[2019-11-28] MEDS: PROMETHAZINE HCL 25 MG/ML 1ML IV PRN ×3 (06:32→20:02)
[2019-11-28] MEDS: SPIRONOLACTONE 25 MG TAB PO SCH ×2 (06:32→18:09)
[2019-11-28] MEDS: NYSTATIN (MOUTH-THROAT) 500,000 UNITS/5 ML SUSP MT SCH ×4 (06:32→22:31)
[2019-11-28] MEDS: GABAPENTIN 300 MG CAP PO SCH ×3 (06:32→22:30)
[2019-11-28] MEDS: HYDROmorphone HCL 2 MG/ML VL IV PRN ×3 (06:33→20:03)
[2019-11-28] MEDS: POTASSIUM CHL 20 Meq TABLET PO SCH ×4 (06:33→22:31)
[2019-11-28] MEDS: ACCU-CHEK COMFORT CURVE STRIP VI SCH ×4 (06:47→22:25)
[2019-11-28] MEDS: InsuLIN REG 1unit/0.01ml Soln (100units/ml) SC SCH ×4 (06:48→22:43)
--- NOTE | 2019-11-28 07:15 | NUR ---
Opening Shift Note Assumed care of patient, awake and alert. No S/S of distress/SOB or pain. Instructed on POC and to call for assist PRN, will continue to monitor for changes Q1hr and PRN.
[2019-11-28] MEDS: PREGABALIN 25 MG CAP PO SCH ×2 (09:43→22:34)
[2019-11-28] MEDS: APIXABAN 5 MG TAB PO SCH ×2 (09:44→22:31)
[2019-11-28] MEDS: MONTELUKAST SODIUM 10 MG TAB PO SCH (09:44)
[2019-11-28] MEDS: MORPHINE SULF 15mg ER tab PO SCH ×2 (09:44→22:31)
[2019-11-28] MEDS: metOLazone 5 MG TAB PO SCH (09:44)
[2019-11-28] MEDS: AMIODARONE HCL 200 MG TAB PO SCH (09:44)
[2019-11-28 13:00] VITALS: BP 109/78
--- NOTE | 2019-11-28 14:40 | NUR ---
Nutrition Followup Notes Pt wt is 90.5 kg Pt was awake with no relatives at bedside when rounded this morning. Pt is with a 2g Sodium diet, appetite is good aeb pt with an avg po intake of 84% x 3 days per RN note. Pt with no distress. Will continue to monitor PO status, skin status, pertinent labs and weight trends. Will f/u in 3-5 days. Est energy needs 3748-2685 kcal (18-20 kcal/kg BW 98kg) Est protein needs 59-74g (0.6-0.75g/kg Bw 98kg, r/t elevated RFT, CKD, no HD, inc if labs improved or HD started) Will reassess prn LABS: BUN 61H, Creat 1.88H, GLUC 145H GI: Pt had 2 BM on 11/22 per RN doc BS: 16 mod risk. Refer to wound assessment report for full details. PES: Obesity r/t caloric intake in excess of needs aeb pt with BMI of 34.9 kg/m2 Altered nutrition related labs r/t chronic medical conditions aeb pt with elevated RFTs, hyperglycemia Comments 1) Continue to monitor po intake, labs, skin 2) Refer pt to OPD on DC 3) Continue current plan of care
--- NOTE | 2019-11-28 16:44 | NUR ---
WOUND CARE NOTE: Wound care in to see patient for reevaluation of wounds. Patient continue resting on air mattress in Rm. 293A. Patient is awake, alert and oriented. She's able to assist in turning and repositioning and her Giuliano score is 16. Patient's sacral pressure injury remain the same, measuring 0.8x0.8cm, full thickness, no measurable depth. Wound is red with pink ari wound. Patient's Rt forearm scabs and ecchymosis remain intact, clean and dry, left open to air. Her Rt plantar foot (1x1cm) and distal L great toe (0.6x0.5cm) continue to display open DFU. Wounds are red with pink ari wound, yellow hyperkeratotic skin, scant serous drainage, no odor noted. Multi closed/calloused DFU remain in her Rt lateral foot, Rt toes, L plantar foot and L 2nd toe. Cleansed patient's sacral pressure injury and bilateral foot/toe open DFU as MD ordered. Patient's bilateral chan continue to display hemosiderin staining, and dry skin, left open to air. New photograph of wounds/skin issue are taken for reference. Patient tolerated well. Be din low position, call peralta on hand all safety precautions in placed. RECOMMENDATION: Continuation of all wound care orders prescribed by MD, continue with skin/wound plan of care, continue monitoring by wound care while patient is hospitalized. Addendum: 11/28/19 at 1828 by Marcella Hendricks RN Amended: Links added.
[2019-11-28 17:00] VITALS: BP 111/72
--- NOTE | 2019-11-28 19:30 | NUR ---
Opening Shift Note Assumed care of patient, awake and alert. No S/S of distress/SOB. Pt states she is experiencing immense pain in in her right lower abdomen that radiates to her lower back and down both legs. Pt reassured that she will be given her prescribed PRN medication shortly. Safety measure in place, bed in lowest position, bed rails raised x2, call light within reach. Instructed on POC and to call for assist PRN, will continue to monitor for changes Q1hr and PRN.
--- NOTE | 2019-11-28 21:30 | NUR ---
Pt refused her scheduled Lantus Pt states that the scheduled Lantus makes her blood sugar go too low and makes her not feel good. Pt given education on the risks and benefits of taking scheduled Lantus. Pt still refused and just wants the regular insulin 4 units per her sliding scale. Lantus held. Will continue to monitor.
[2019-11-28 21:55] VITALS: BP 108/65
[2019-11-28] MEDS: INSULIN LANTUS (GLARGINE) 1 /0.01ml (100units/ml) SC SCH (22:00)
[2019-11-28] MEDS: PRAMIPEXOLE DIHYDROCHLORIDE MO 0.25 MG TAB PO SCH (22:00)
--- NOTE | 2019-11-28 22:00 | NUR ---
Mirapex not given Mirapex 2mg not available on [facility], [facility] or ICU. Will relay to day RN.
--- NOTE | 2019-11-28 22:00 | NUR ---
Pt request bed rails raised x4 for fall concern. Pt educated on fall precautions and told to call for assistance or concerns. Will continue to monitor. Addendum: 11/29/19 at 0200 by Kelly Montes RN RN Educated Pt about hourly rounding. Educated that 4 rails raised equals a restraint. Educated Pt that bed alarm is on and hourly rounding will be preformed for safety. Pt verbalized understanding, 3 rails raised, will continue to monitor.
[2019-11-28] MEDS: traZODone HCL 50 MG TAB PO SCH (22:30)
[2019-11-29] MEDS: FUROSEMIDE INJECTION 100 MG in SODIUM CHL 0.9% 100 ML IV SCH ×6 (00:40→23:13)
[2019-11-29] MEDS: HYDROmorphone HCL 2 MG/ML VL IV PRN ×3 (04:04→21:28)
[2019-11-29] MEDS: PROMETHAZINE HCL 25 MG/ML 1ML IV PRN ×3 (04:04→21:32)
[2019-11-29] MEDS: DOBUTamine 1000MCG/ML 250 ML IV SCH ×2 (04:06→10:34)
[2019-11-29 05:00] VITALS: BP 103/55
[2019-11-29] MEDS: GABAPENTIN 300 MG CAP PO SCH ×3 (06:41→21:37)
[2019-11-29] MEDS: NYSTATIN (MOUTH-THROAT) 500,000 UNITS/5 ML SUSP MT SCH ×4 (06:41→21:35)
[2019-11-29] MEDS: POTASSIUM CHL 20 Meq TABLET PO SCH ×4 (06:41→21:37)
[2019-11-29] MEDS: SPIRONOLACTONE 25 MG TAB PO SCH ×2 (06:41→18:22)
[2019-11-29] MEDS: ACCU-CHEK COMFORT CURVE STRIP VI SCH ×4 (06:48→21:42)
[2019-11-29] MEDS: InsuLIN REG 1unit/0.01ml Soln (100units/ml) SC SCH ×4 (06:48→21:51)
--- NOTE | 2019-11-29 07:32 | NUR ---
Opening Shift Note Assumed care of patient from noc shift rn, awake, alert and oriented x4. Denies SOB, no complains of pain at this time. Plan of care discussed, encouraged to call for assist PRN, Bed in low and locked position. will continue to monitor for changes Q1hr and PRN.
[2019-11-29 08:00] VITALS: BP 103/58
[2019-11-29 08:13] LABS: Calcium 9.3 mg/dL (8.5-10.1); Potassium 3.5 mmol/L (3.5-5.1)
[2019-11-29 08:16] LABS: BUN/Creatinine Ratio 30.8
[2019-11-29 08:30] VITALS: BP 103/58
--- NOTE | 2019-11-29 08:30 | NUR ---
Care endorsed to Jenny WADSWORTH. Addendum: 11/29/19 at 2242 by Kelly Montes RN RN Change note time to 2030
--- NOTE | 2019-11-29 08:34 | NUR ---
DR GARCIA AT BEDSIDE. PLACED NEW ORDER FOR CT OF ABD/PELVIS WITH ORAL CONTRAST.
[2019-11-29] MEDS: metOLazone 5 MG TAB PO SCH (10:25)
[2019-11-29] MEDS: MONTELUKAST SODIUM 10 MG TAB PO SCH (10:29)
[2019-11-29] MEDS: APIXABAN 5 MG TAB PO SCH ×2 (10:29→21:37)
[2019-11-29] MEDS: AMIODARONE HCL 200 MG TAB PO SCH (10:29)
[2019-11-29] MEDS: MORPHINE SULF 15mg ER tab PO SCH ×2 (10:29→21:36)
[2019-11-29] MEDS ORDERED: OMNIPAQUE ORAL SOLN 500ml 12mg/ml PO ONE (11:57)
[2019-11-29 12:35] VITALS: BP 114/84
--- NOTE | 2019-11-29 14:23 | NUR ---
patient is currently off unit. will resume scheduled med upon return
[2019-11-29] MEDS: PREGABALIN 25 MG CAP PO SCH ×2 (15:24→21:39)
[2019-11-29 16:41] VITALS: BP 103/72
--- NOTE | 2019-11-29 19:30 | NUR ---
Optifoam dressing placed on patients sacrum. Pt states that the previous dressing had come off. Area is reddened with a small open wound. Educated patient on turning and repositioning every hour. Will continue to round q1h and PRN.
[2019-11-29] MEDS: traZODone HCL 50 MG TAB PO SCH (21:36)
[2019-11-29] MEDS: PRAMIPEXOLE DIHYDROCHLORIDE MO 0.25 MG TAB PO SCH (21:38)
[2019-11-29] MEDS: INSULIN LANTUS (GLARGINE) 1 /0.01ml (100units/ml) SC SCH (21:41)
[2019-11-30] MEDS: DOBUTamine 1000MCG/ML 250 ML IV SCH ×4 (00:24→20:13)
[2019-11-30] MEDS: HYDROmorphone HCL 2 MG/ML VL IV PRN ×4 (03:50→23:22)
[2019-11-30] MEDS: PROMETHAZINE HCL 25 MG/ML 1ML IV PRN ×4 (03:50→23:23)
[2019-11-30] MEDS: FUROSEMIDE INJECTION 100 MG in SODIUM CHL 0.9% 100 ML IV SCH ×5 (04:12→22:14)
[2019-11-30] MEDS: SPIRONOLACTONE 25 MG TAB PO SCH ×2 (05:58→17:36)
[2019-11-30] MEDS: POTASSIUM CHL 20 Meq TABLET PO SCH ×4 (05:58→22:08)
[2019-11-30] MEDS: GABAPENTIN 300 MG CAP PO SCH ×3 (05:58→21:56)
[2019-11-30] MEDS: NYSTATIN (MOUTH-THROAT) 500,000 UNITS/5 ML SUSP MT SCH ×4 (05:58→21:57)
[2019-11-30] MEDS: ACCU-CHEK COMFORT CURVE STRIP VI SCH ×4 (06:53→22:13)
[2019-11-30] MEDS: InsuLIN REG 1unit/0.01ml Soln (100units/ml) SC SCH ×4 (06:58→22:13)
[2019-11-30 08:12] LABS: BUN/Creatinine Ratio 30.9; Calcium 9.3 mg/dL (8.5-10.1); Potassium 3.1 mmol/L (3.5-5.1)
[2019-11-30 09:00] VITALS: BP 108/60
[2019-11-30] MEDS: AMIODARONE HCL 200 MG TAB PO SCH (10:03)
[2019-11-30] MEDS: PREGABALIN 25 MG CAP PO SCH ×2 (10:03→21:59)
[2019-11-30] MEDS: APIXABAN 5 MG TAB PO SCH ×2 (10:03→21:56)
[2019-11-30] MEDS: metOLazone 5 MG TAB PO SCH (10:04)
[2019-11-30] MEDS: MONTELUKAST SODIUM 10 MG TAB PO SCH (10:04)
[2019-11-30] MEDS: MORPHINE SULF 15mg ER tab PO SCH ×2 (10:04→21:57)
[2019-11-30 13:00] VITALS: BP 105/67
[2019-11-30 16:53] VITALS: BP 117/80
--- NOTE | 2019-11-30 19:51 | NUR ---
Opening Shift Note Assumed care of patient, awake and alert. No S/S of distress/SOB or pain. Instructed on POC and to call for assist PRN, will continue to monitor for changes Q1hr and PRN. fall precautions in place and call light within reach.
[2019-11-30] MEDS: traZODone HCL 50 MG TAB PO SCH (21:56)
[2019-11-30 22:00] VITALS: BP 106/71
[2019-11-30] MEDS: PRAMIPEXOLE DIHYDROCHLORIDE MO 0.25 MG TAB PO SCH (22:00)
[2019-11-30] MEDS: INSULIN LANTUS (GLARGINE) 1 /0.01ml (100units/ml) SC SCH (22:00)
--- NOTE | 2019-11-30 23:23 | NUR ---
pain pain 8/10 generalized chronic pain. patient medicated per md order
[2019-12-01] MEDS: FUROSEMIDE INJECTION 100 MG in SODIUM CHL 0.9% 100 ML IV SCH ×5 (03:15→23:42)
[2019-12-01 05:00] VITALS: BP 99/67
[2019-12-01] MEDS: GABAPENTIN 300 MG CAP PO SCH ×3 (06:05→22:13)
[2019-12-01] MEDS: NYSTATIN (MOUTH-THROAT) 500,000 UNITS/5 ML SUSP MT SCH ×4 (06:05→22:13)
[2019-12-01] MEDS: SPIRONOLACTONE 25 MG TAB PO SCH ×2 (06:06→17:56)
[2019-12-01] MEDS: POTASSIUM CHL 20 Meq TABLET PO SCH ×4 (06:06→22:13)
[2019-12-01] MEDS: DOBUTamine 1000MCG/ML 250 ML IV SCH ×3 (06:06→23:41)
[2019-12-01] MEDS: ACCU-CHEK COMFORT CURVE STRIP VI SCH ×4 (06:14→22:25)
[2019-12-01] MEDS: InsuLIN REG 1unit/0.01ml Soln (100units/ml) SC SCH ×4 (06:14→22:00)
[2019-12-01 07:00] VITALS: BP 107/63
[2019-12-01] MEDS: PROMETHAZINE HCL 25 MG/ML 1ML IV PRN ×3 (07:02→20:47)
[2019-12-01] MEDS: HYDROmorphone HCL 2 MG/ML VL IV PRN ×2 (07:02→14:45)
--- NOTE | 2019-12-01 07:25 | NUR ---
report given to dayshift rn. patient denies sob distress or pain. patient is awake and alert care endorsed to dayshift rn
[2019-12-01 09:00] VITALS: BP 103/68
[2019-12-01] MEDS: AMIODARONE HCL 200 MG TAB PO SCH (09:41)
[2019-12-01] MEDS: metOLazone 5 MG TAB PO SCH (09:42)
[2019-12-01] MEDS: MORPHINE SULF 15mg ER tab PO SCH ×2 (09:42→22:12)
[2019-12-01] MEDS: PREGABALIN 25 MG CAP PO SCH ×2 (09:42→22:12)
[2019-12-01] MEDS: MONTELUKAST SODIUM 10 MG TAB PO SCH (09:42)
[2019-12-01] MEDS: APIXABAN 5 MG TAB PO SCH ×2 (09:42→22:13)
[2019-12-01 12:05] LABS: BUN/Creatinine Ratio 33.2; Calcium 9.4 mg/dL (8.5-10.1)
[2019-12-01 13:00] VITALS: BP 95/65
--- NOTE | 2019-12-01 14:36 | NUR ---
Nutrition Followup Notes Pt wt is 90.5 kg Pt was awake with no relatives at bedside when rounded this morning. Pt is with a 2g Sodium diet, appetite is far aeb pt with an avg po intake of 70% x 3 days per RN note. Pt reports she does not consume a high sodium diet at home, not sure why MD has her on 2g Na diet. Advised pt to watch Na intake d/t possible fluid retention, edema. Will continue to monitor PO status, skin status, pertinent labs and weight trends. Will f/u in 3-5 days. Est energy needs 2350-9180 kcal (18-20 kcal/kg BW 98kg) Est protein needs 59-74g (0.6-0.75g/kg Bw 98kg, r/t elevated RFT, CKD, no HD, inc if labs improved or HD started) Will reassess prn LABS: BUN 63H, Creat 2.04H, CO2 34H, GLUC 160H GI: Pt had 1 BM on 11/29 per RN doc BS: 17 mod risk. Refer to wound assessment report for full details. PES: Obesity r/t caloric intake in excess of needs aeb pt with BMI of 34.9 kg/m2 Altered nutrition related labs r/t chronic medical conditions aeb pt with elevated RFTs, hyperglycemia Comments 1) Continue to monitor po intake, labs, skin 2) Refer pt to [facility]PD on DC 3) Continue current plan of care
[2019-12-01 17:00] VITALS: BP 140/60
--- NOTE | 2019-12-01 19:51 | NUR ---
Opening Shift Note Assumed care of patient, awake and alert. No S/S of distress/SOB or pain. Instructed on POC and to call for assist PRN, will continue to monitor for changes Q1hr and PRN. fall precautions in place,
--- NOTE | 2019-12-01 19:51 | NUR ---
PATIENT EDUCATED ON PLACEMENT OF NEW IV PATIENT REFUSED STATING " SHE WILL BE GOING HOME SOON." PATIENT EDUCATED ON BENEFITS AND RISKS.
--- NOTE | 2019-12-01 20:32 | NUR ---
left message to md grimaldo answering livestock sales representative patient requesting medication dilaudid for back and abd pain, medication was discontinued. hot packs provided to patient. awaiting call back.
[2019-12-01 22:00] VITALS: BP 103/69
[2019-12-01] MEDS: INSULIN LANTUS (GLARGINE) 1 /0.01ml (100units/ml) SC SCH (22:00)
[2019-12-01] MEDS: traZODone HCL 50 MG TAB PO SCH (22:12)
[2019-12-01] MEDS: PRAMIPEXOLE DIHYDROCHLORIDE MO 0.25 MG TAB PO SCH (22:14)
--- NOTE | 2019-12-01 23:00 | NUR ---
PATIENT SLEEPING NO SIGNS OF PAIN SOB DISTRESS OR PAIN
[2019-12-02 05:00] VITALS: BP 100/66
[2019-12-02] MEDS: SPIRONOLACTONE 25 MG TAB PO SCH ×2 (05:22→18:00)
[2019-12-02] MEDS: POTASSIUM CHL 20 Meq TABLET PO SCH ×3 (05:22→18:00)
[2019-12-02] MEDS: FUROSEMIDE INJECTION 100 MG in SODIUM CHL 0.9% 100 ML IV SCH ×3 (05:22→15:13)
[2019-12-02] MEDS: GABAPENTIN 300 MG CAP PO SCH ×2 (05:23→15:13)
[2019-12-02] MEDS: NYSTATIN (MOUTH-THROAT) 500,000 UNITS/5 ML SUSP MT SCH ×3 (05:23→18:00)
[2019-12-02] MEDS: PROMETHAZINE HCL 25 MG/ML 1ML IV PRN ×2 (05:36→11:25)
[2019-12-02] MEDS: InsuLIN REG 1unit/0.01ml Soln (100units/ml) SC SCH ×3 (05:42→18:03)
[2019-12-02] MEDS: ACCU-CHEK COMFORT CURVE STRIP VI SCH ×3 (05:43→17:00)
--- NOTE | 2019-12-02 06:46 | NUR ---
patient sleeping in bed no signs of sob distress or pain. fall precautions in place. will endorse care to dayshift rn to obtain pain medication prn as md grimaldo did not return phone call.
--- NOTE | 2019-12-02 07:20 | NUR ---
report given to dayshift rn patient denies sob or distress. patient reports generalized pain. patient has no pain medication available, hot pack provided per patient request. endorsed care to dayshift rn. fall precautions in place and call light within reach
[2019-12-02 07:35] LABS: BUN/Creatinine Ratio 32.7; Calcium 9.5 mg/dL (8.5-10.1); Potassium 3.1 mmol/L (3.5-5.1)
[2019-12-02 08:00] VITALS: BP 108/45
[2019-12-02 09:00] VITALS: BP 108/45
[2019-12-02] MEDS ORDERED: HYDROmorphone HCL 2 MG/ML VL IV PRN (09:30)
[2019-12-02] MEDS: DOBUTamine 1000MCG/ML 250 ML IV SCH ×2 (10:13→18:26)
[2019-12-02] MEDS: AMIODARONE HCL 200 MG TAB PO SCH (10:13)
[2019-12-02] MEDS: PREGABALIN 25 MG CAP PO SCH (10:14)
[2019-12-02] MEDS: MONTELUKAST SODIUM 10 MG TAB PO SCH (10:14)
[2019-12-02] MEDS: APIXABAN 5 MG TAB PO SCH (10:14)
[2019-12-02] MEDS: metOLazone 5 MG TAB PO SCH (10:14)
[2019-12-02 13:00] VITALS: BP 91/63
[2019-12-02] MEDS ORDERED: MAGNESIUM CITRATE SOLUTION 300 ML BTL PO ONE (13:45)
[2019-12-02 17:00] VITALS: BP 107/67
--- NOTE | 2019-12-02 18:30 | NUR ---
LUBIN REMOVED WITH CATHETER INTACT,PATIENT TOLERATED WELL
--- NOTE | 2019-12-02 18:40 | NUR ---
DC WOUND CARE PHOTOS TAKEN
[2019-12-02 19:21] VITALS: BP 107/67
--- NOTE | 2019-12-02 20:00 | NUR ---
Removed the i.v.line and taped it, also tele box returned by Kathleen Vallejo.
--- NOTE | 2019-12-02 20:05 | NUR ---
ALL discharged papers explained everything by Bronwyn Vallejo including follow-up for Dr. Lr in 2 weeks.and wheeled the patient also in the lobby.
--- NOTE | 2019-12-02 20:05 | NUR ---
Discharged in good condition no distress and wheeled down by the Resource Kathleen Vallejo.
== END 2019-12-02 20:05 | disposition home health service (06) | DRG 291 ==
LOC: TELE-WESTW 14:45
PROVIDERS: ADMIT Internal Medicine Cardiovascular Disease; ATTEND Internal Medicine Cardiovascular Disease
DX: I13.0 Hypertensive heart and chronic kidney disease with heart failure and stage 1 through stage 4 chronic kidney disease, or unspecified chronic kidney disease (principal); I50.33 Acute on chronic diastolic (congestive) heart failure; J96.90 Respiratory failure, unspecified, unspecified whether with hypoxia or hypercapnia; M31.9 Necrotizing vasculopathy, unspecified; E87.6 Hypokalemia; E11.22 Type 2 diabetes mellitus with diabetic chronic kidney disease; D64.9 Anemia, unspecified; M19.90 Unspecified osteoarthritis, unspecified site; E11.40 Type 2 diabetes mellitus with diabetic neuropathy, unspecified; E11.21 Type 2 diabetes mellitus with diabetic nephropathy; G89.4 Chronic pain syndrome; I27.29 Other secondary pulmonary hypertension; J44.9 Chronic obstructive pulmonary disease, unspecified; K59.03 Drug induced constipation; K80.20 Calculus of gallbladder without cholecystitis without obstruction; K82.8 Other specified diseases of gallbladder; M41.9 Scoliosis, unspecified; M51.36 Other intervertebral disc degeneration, lumbar region; M79.7 Fibromyalgia; M81.0 Age-related osteoporosis without current pathological fracture; N18.3 Chronic kidney disease, stage 3 (moderate); T40.605A Adverse effect of unspecified narcotics, initial encounter; E66.01 Morbid (severe) obesity due to excess calories; R16.2 Hepatomegaly with splenomegaly, not elsewhere classified; Z82.49 Family history of ischemic heart disease and other diseases of the circulatory system; Z82.5 Family history of asthma and other chronic lower respiratory diseases; Z83.3 Family history of diabetes mellitus; Z91.14 Patient's other noncompliance with medication regimen; Z91.041 Radiographic dye allergy status; Z91.048 Other nonmedicinal substance allergy status; Z79.4 Long term (current) use of insulin; K86.89 Other specified diseases of pancreas; Z68.32 Body mass index [BMI] 32.0-32.9, adult
CPT/HCPCS: 36415; 74176; 80048; 81001; 82962; 84132; 85025; 87081; G0378; J1815; J3480

== ENCOUNTER 2019-12-04 20:01 | Inpatient (IN) | payer MEDICARE, MEDICAID ==
[~2019-12-04] VITALS: Ht 172.7 cm; Wt 82.6 kg
[2019-12-04] MEDS: traZODone HCL 50 MG TAB PO SCH (02:10)
[2019-12-04] MEDS: PANTOPRAZOLE 40 MG TAB PO SCH (02:10)
[2019-12-04] MEDS: POTASSIUM CHL 20 Meq TABLET PO SCH (02:10)
[2019-12-04] MEDS: GABAPENTIN 300 MG CAP PO SCH (02:10)
[~2019-12-04 20:01] MED LIST changes: +BUDE1SUS9; -BUME1TAB28 PO; -INSLISPI SC; +INSU100I4 SC; +INSU1INJ5 SC; -LEVEMIR SC; +MOME200A INH; -TRAZ100T3 PO; +TRAZ50TA2 PO
[2019-12-04 21:38] LABS: Basophils # (auto) 0 10 ^3/uL (0-0.2); Basophils % (auto) 0.7 % (0.0-2.0); Eosinophils # (auto) 0.1 10 ^3/uL (0-0.8); Mean Corpuscular Hemoglobin 21.6 pg (28.0-32.0); Mean Corpuscular Hgb Conc. 31.6 g/dL (32.0-36.0); Mean Corpuscular Volume 68.4 fL (80.0-100.0); Monocytes # (auto) 0.7 10 ^3/uL (0-1.3)
[2019-12-04 21:41] LABS: Eosinophils % (auto) 2.6 % (0.0-7.0); Hemoglobin 12.9 g/dL (12.2-16.2); Lymphocytes # (auto) 0.7 10 ^3/uL (0.4-5.4); Lymphocytes % (auto) 12.9 % (10.0-50.0); Monocytes % (auto) 13.1 % (0.0-12.0); Neutrophils # (auto) 3.7 10 ^3/uL (1.6-8.6); Neutrophils % (auto) 70.7 % (37.0-80.0); Platelet Count (auto) 108 10^3/uL (140-450); Red Blood Cells 5.99 10^6/uL (4.0-5.20); Red Cell Distribution Width 20.6 % (11.8-14.3); White Blood Cell 5.2 10^3/uL (4.4-10.8)
[2019-12-04 21:46] LABS: INR 1.13 (0.9-1.15); Partial Thromboplastin Time 30.9 sec (23.64-32.05)
[2019-12-04 21:49] LABS: Alanine Aminotransferase 30 U/L (13-56); Albumin 4.3 g/dL (3.4-5.0); Anion Gap 10 (5-15); Aspartate Aminotransferase 33 U/L (15-37); BUN/Creatinine Ratio 33.6; Calcium 9.6 mg/dL (8.5-10.1); Carbon Dioxide 31 mmol/L (21-32); Chloride 94 mmol/L (98-107); GFR African American 21 mL/min; GFR Non-African American 17 mL/min; Glucose 101 mg/dL (74-106); Sodium 135 mmol/L (136-145)
[2019-12-04 21:54] LABS: Alkaline Phosphatase 110 U/L (45-117); Bilirubin, Total 0.7 mg/dL (0.2-1.0); Total Protein 8.6 g/dL (6.4-8.2)
[2019-12-04 21:58] LABS: Blood Urea Nitrogen 99 mg/dL (7-18); Potassium 2.8 mmol/L (3.5-5.1)
[2019-12-04] MEDS ORDERED: POTASSIUM EFFERVESENT TAB 25 MEQ GT ONE (22:15)
[2019-12-04] MEDS ORDERED: SODIUM CHLORIDE 0.9% 1,000 ML IV ONE (22:15)
[2019-12-04] MEDS ORDERED: NITROGLYCERIN 0.4 MG SL TAB SL PRN (23:00)
[2019-12-04] MEDS ORDERED: DEXTROSE (50%) 50ML SYRG IV PRN (23:00)
[2019-12-04] MEDS ORDERED: MORPHINE SULF INJ 2 MG/ML SYRINGE 1ML IV PRN (23:00)
[2019-12-04] MEDS ORDERED: metOLazone 5 MG TAB PO PRN (23:00)
[2019-12-04] MEDS ORDERED: PREGABALIN 25 MG CAP PO ONE (23:45)
[2019-12-04 23:50] LABS: Urine Bacteria FEW /hpf (None Seen); Urine Blood Negative /uL (Negative); Urine Specific Gravity 1.007 (1.001-1.035); Urine WBC 7 /hpf (0 - 5)
[2019-12-04] MEDS: TORSEMIDE 20 MG TAB PO SCH (23:51)
[2019-12-04] MEDS: PRAMIPEXOLE DIHYDROCHLORIDE MO 0.25 MG TAB PO SCH (23:52)
[2019-12-05] MEDS: POLYETHYLENE GLYCOL 17 GM PWDR PO SCH ×3 (02:10→21:52)
[2019-12-05] MEDS: HYDROcodone-ACET 10/325MG TAB PO PRN (02:16)
--- NOTE | 2019-12-05 02:20 | NUR ---
0220 PATIENT ARRIVED IN HER ROOM ON A GURNEY AT 0100. SHE WAS TRANSFERRED TO HER BED AND MADE COMFORTABLE. SHE WAS IN SEVERE BACK PAIN. SHE HAD ROOM OREINTATION. CALL BUTTON WAS PLACED WITHIN HER REACH.VITAL SIGNS WERE WITHIN NORMAL LIMITS.
--- NOTE | 2019-12-05 02:27 | NUR ---
PATIENT WAS DISCHARGED HOME FROM THIS HOSPITAL ON THE EVENING OF 12/03/19. CAME BACK YESTERDAY BECAUSE SHE FELL AT HOME TWICE AND HURT HER BACK WHICH STARTED GIVING HER SEVERE PAINS. PATIENT IS ALERT AND ORIENTED BUT IN SEVERE PAIN. SHE HAS BEEN MEDICATED FOR PAIN AND REASSURED.
--- NOTE | 2019-12-05 03:43 | NUR ---
NASAL SWAB FOR MRSA SCREEN OBTAINED AND SENT TO LAB VIA TUBE SYSTEM.
--- NOTE | 2019-12-05 04:19 | NUR ---
HEALED BUTTOCK?SACRAL WOUND. PICTURE TAKEN FOR DRAPERY COUNSELOR EVALUATION.
[2019-12-05 05:00] VITALS: BP 100/58
[2019-12-05] MEDS: GABAPENTIN 300 MG CAP PO SCH ×3 (06:00→21:51)
[2019-12-05] MEDS: ACCU-CHEK COMFORT CURVE STRIP VI SCH ×4 (06:45→22:00)
[2019-12-05] MEDS: InsuLIN REG 1unit/0.01ml Soln (100units/ml) SC SCH ×4 (06:47→22:00)
[2019-12-05] MEDS: MORPHINE SULF 15mg ER tab PO PRN (06:58)
[2019-12-05 07:47] LABS: BUN/Creatinine Ratio 40.2; Calcium 9.1 mg/dL (8.5-10.1)
--- NOTE | 2019-12-05 08:12 | NUR ---
MD GARCIA MADE AWARE OF CRITICAL LAB BUN 97 TODAY.
--- NOTE | 2019-12-05 08:15 | NUR ---
OPENING SHIFT NOTE: PATIENT RESTING IN BED. A/OX3. PATIENT RESPIRATIONS EVEN AND UNLABORED ON ROOM AIR. PATIENT UPDATED ON PLAN OF CARE, CONCERNS ADDRESSED. INQUIRED ABOUT CURRENT MEDICATIONS AND INDICATIONS. PATIENT NOTED TO HAVE HOME DOBUTAMINE IV IN PLACE CONNECTED TO RIGHT UPPER CHEST MALIKA CATHETER. LUBIN HUNG BELOW BLADDER FREE OF KINKS. CALL LIGHT WITHIN REACH, BED ALARM AND FALL PRECAUTIONS IN PLACE. WILL CONTINUE TO MONITOR,.
[2019-12-05 09:00] VITALS: BP 96/69
[2019-12-05] MEDS ORDERED: PROMETHAZINE HCL 6.25 MG/5 ML ORAL SYRUP PO ONE ×2 (10:00→10:15)
[2019-12-05] MEDS ORDERED: LORazepam 0.5 MG TAB PO ONE (10:00)
[2019-12-05] MEDS: TORSEMIDE 20 MG TAB PO SCH ×2 (10:09→21:52)
[2019-12-05] MEDS: POTASSIUM CHL 20 Meq TABLET PO SCH ×2 (10:09→21:51)
[2019-12-05] MEDS: PANTOPRAZOLE 40 MG TAB PO SCH (10:10)
--- NOTE | 2019-12-05 11:30 | NUR ---
WOUND CARE NOTE: IN TO SEE PATIENT AT THIS TIME PER WOUND CARE CONSULT REQUEST. PATIENT IS WELL KNOWN TO WOUND CARE TEAM, WITH MULTIPLE ADMISSIONS TO [facility]. PATIENT JUST DISCHARGED FROM THIS FACILITY, AND FELL AT HOME, REQUIRING NEW ADMIT. SPECIALTY AIR MATTRESS HAS BEEN ORDERED WITH [employer] PATIENT TO BE PLACED, PENDING DELIVERY. 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 WOUND PHOTOS WERE TAKEN UPON ADMIT, AND AGAIN AT THIS TIME FOR REFERENCE. APPLIED THERAHONEY AND OPTIFOAM DRESSINGS TO ALL OPEN WOUNDS. PATIENT HAS CURRENT TASIA SCORE OF 20. SHE CAN SELF TURN, BUT SPECIALTY MATTRESS IS REQUIRED D/T HER STAGE 3 PRESSURE INJURY. RECOMMEND: FREQUENT TURN SCHEDULE Q 2 HOURS, PRN CONDITION PERMITS, WITH PRESSURE REDISTRIBUTION USING PILLOWS/WEDGES, SPECIALTY AIR MATTRESS, DIETARY CONSULT, DAILY DRESSING CHANGE TO SACRAL WOUND, EOD/PRN DRESSING CHANGES TO BILATERAL FEET, SKIN/WOUND CARE PLAN, CONTINUED MONITORING BY WOUND CARE TEAM. Addendum: 12/05/19 at 1848 by Daria Taylor RN Amended: Links added.
--- NOTE | 2019-12-05 11:40 | NUR ---
HOME SERVICE DEMONSTRATOR AT BEDSIDE.
[2019-12-05] MEDS: DOBUTamine 1000MCG/ML 250 ML IV SCH (11:55)
--- NOTE | 2019-12-05 11:56 | NUR ---
URINE SENT TO LAB FOR CULTURE.
[2019-12-05 13:00] VITALS: BP 88/56
[2019-12-05] MEDS ORDERED: POTASSIUM EFFERVESENT TAB 25 MEQ PO ONE (14:15)
[2019-12-05 17:00] VITALS: BP 92/70
--- NOTE | 2019-12-05 19:12 | NUR ---
CARE ENDORSED TO NOC RN.
--- NOTE | 2019-12-05 19:30 | NUR ---
Opening Shift Note Assumed care of patient, awake and alert. No S/S of distress/SOB or pain. Instructed on POC and to call for assist PRN, patient verbalized understanding. Safety precaution in place, call light within reach, will continue to monitor for changes Q1hr and PRN.
[2019-12-05] MEDS: traZODone HCL 50 MG TAB PO SCH (21:51)
[2019-12-05] MEDS: PRAMIPEXOLE DIHYDROCHLORIDE MO 0.25 MG TAB PO SCH (21:52)
[2019-12-05 21:58] VITALS: BP 95/69
[2019-12-06] MEDS: DOBUTamine 1000MCG/ML 250 ML IV SCH ×3 (00:03→23:07)
[2019-12-06 05:00] VITALS: BP 110/77
[2019-12-06] MEDS: InsuLIN REG 1unit/0.01ml Soln (100units/ml) SC SCH ×4 (06:10→22:02)
[2019-12-06] MEDS: ACCU-CHEK COMFORT CURVE STRIP VI SCH ×4 (06:11→22:00)
[2019-12-06] MEDS: GABAPENTIN 300 MG CAP PO SCH ×3 (06:11→21:44)
[2019-12-06 06:12] LABS: BUN/Creatinine Ratio 40.9; Calcium 8.8 mg/dL (8.5-10.1); Potassium 3.4 mmol/L (3.5-5.1)
[2019-12-06] MEDS: HYDROcodone-ACET 10/325MG TAB PO PRN ×2 (06:41→21:44)
--- NOTE | 2019-12-06 06:44 | NUR ---
Received a critical BUN of 99. Left a message to Dr. Lr, awaiting call back
[2019-12-06 09:38] VITALS: BP 108/70
[2019-12-06] MEDS: TORSEMIDE 20 MG TAB PO SCH ×2 (10:00→21:49)
[2019-12-06] MEDS: cefTRIAXone 1GM/50ML D5W 50 ML IV SCH (10:24)
[2019-12-06] MEDS: POLYETHYLENE GLYCOL 17 GM PWDR PO SCH ×2 (10:25→21:47)
[2019-12-06] MEDS: PANTOPRAZOLE 40 MG TAB PO SCH (10:25)
[2019-12-06] MEDS: POTASSIUM CHL 20 Meq TABLET PO SCH ×2 (10:25→21:36)
[2019-12-06] MEDS: MORPHINE SULF 15mg ER tab PO PRN (11:04)
--- NOTE | 2019-12-06 11:13 | NUR ---
EMPTIED 1750ML OF CLOUDY YELLOW URINE FROM LUBIN CATHETER
--- NOTE | 2019-12-06 12:23 | NUR ---
Nutrition Assessment/consult Notes please see attached link for complete assessment Est Energy needs BW 81 [id number] kcals (23-25 kcal/kgBW), Est Protein needs: 65-81 gms/day (0.8-1.0 gm/kgBW r/t elev RFT CKD WOUNDS). Will continue to monitor and reassess prn. Addendum: 12/06/19 at [address] Amended: Links added.
[2019-12-06 13:00] VITALS: BP 112/70
[2019-12-06] MEDS ORDERED: ALBUMIN 5% 250 ML IV ONE ×2 (14:00→16:30)
[2019-12-06 17:00] VITALS: BP 111/79
--- NOTE | 2019-12-06 19:35 | NUR ---
Opening Shift Note Assumed care of patient, awake and alert. No S/S of distress/SOB noted. Bed is in lowest locked position with bed rails up x2 and call light is within reach. Instructed on POC and to call for assist PRN.
[2019-12-06] MEDS: PRAMIPEXOLE DIHYDROCHLORIDE MO 0.25 MG TAB PO SCH (21:40)
[2019-12-06] MEDS: traZODone HCL 50 MG TAB PO SCH (21:43)
[2019-12-06 22:00] VITALS: BP 108/70
[2019-12-07] MEDS: HYDROcodone-ACET 10/325MG TAB PO PRN ×3 (03:47→22:01)
[2019-12-07 05:00] VITALS: BP 103/76
[2019-12-07] MEDS: ACCU-CHEK COMFORT CURVE STRIP VI SCH ×4 (06:16→22:04)
[2019-12-07] MEDS: GABAPENTIN 300 MG CAP PO SCH ×3 (06:17→22:00)
[2019-12-07] MEDS: InsuLIN REG 1unit/0.01ml Soln (100units/ml) SC SCH ×4 (06:27→22:26)
[2019-12-07 09:00] VITALS: BP 109/76
[2019-12-07] MEDS: cefTRIAXone 1GM/50ML D5W 50 ML IV SCH ×2 (09:48→10:59)
[2019-12-07] MEDS: POTASSIUM CHL 20 Meq TABLET PO SCH ×2 (11:00→22:00)
[2019-12-07] MEDS: DOBUTamine 1000MCG/ML 250 ML IV SCH ×2 (11:00→22:04)
[2019-12-07] MEDS: PANTOPRAZOLE 40 MG TAB PO SCH (11:00)
[2019-12-07] MEDS: POLYETHYLENE GLYCOL 17 GM PWDR PO SCH ×2 (11:00→22:03)
[2019-12-07] MEDS: TORSEMIDE 20 MG TAB PO SCH ×2 (11:01→22:02)
[2019-12-07] MEDS: MORPHINE SULF 15mg ER tab PO PRN (11:45)
[2019-12-07 12:56] VITALS: BP 104/75
[2019-12-07 17:00] VITALS: BP 110/78
--- NOTE | 2019-12-07 19:15 | NUR ---
Opening Shift Note Assumed care of patient, awake and alert. No S/S of distress/SOB or pain. Safety measures in place, bed in lowest position, bed rails raised x2, call light within reach. All needs met at this time. Instructed on POC and to call for assist PRN, will continue to monitor for changes Q1hr and PRN.
[2019-12-07 22:00] VITALS: BP 107/73
[2019-12-07] MEDS: traZODone HCL 50 MG TAB PO SCH (22:01)
[2019-12-07] MEDS: PRAMIPEXOLE DIHYDROCHLORIDE MO 0.25 MG TAB PO SCH (22:03)
[2019-12-08 05:00] VITALS: BP 91/62
[2019-12-08] MEDS: GABAPENTIN 300 MG CAP PO SCH ×3 (06:13→21:42)
[2019-12-08] MEDS: HYDROcodone-ACET 10/325MG TAB PO PRN ×3 (06:15→19:02)
[2019-12-08] MEDS: ACCU-CHEK COMFORT CURVE STRIP VI SCH ×4 (06:17→21:42)
[2019-12-08] MEDS: InsuLIN REG 1unit/0.01ml Soln (100units/ml) SC SCH ×4 (06:20→21:47)
[2019-12-08 08:51] VITALS: BP 113/72
[2019-12-08] MEDS: cefTRIAXone 1GM/50ML D5W 50 ML IV SCH (10:03)
[2019-12-08] MEDS: TORSEMIDE 20 MG TAB PO SCH ×2 (10:04→21:41)
[2019-12-08] MEDS: POLYETHYLENE GLYCOL 17 GM PWDR PO SCH ×2 (10:05→21:45)
[2019-12-08] MEDS: PANTOPRAZOLE 40 MG TAB PO SCH (10:05)
[2019-12-08] MEDS: POTASSIUM CHL 20 Meq TABLET PO SCH ×2 (10:05→21:54)
[2019-12-08 10:14] LABS: Calcium 9.1 mg/dL (8.5-10.1)
[2019-12-08 10:18] LABS: BUN/Creatinine Ratio 38.7; Bilirubin, Total 0.6 mg/dL (0.2-1.0); Total Protein 7.5 g/dL (6.4-8.2)
[2019-12-08] MEDS: DOBUTamine 1000MCG/ML 250 ML IV SCH ×2 (10:18→21:43)
[2019-12-08 10:35] LABS: Potassium 2.7 mmol/L (3.5-5.1)
[2019-12-08] MEDS: POTASSIUM EFFERVESENT TAB 25 MEQ PO SCH ×4 (12:14→18:15)
[2019-12-08 13:00] VITALS: BP 109/70
[2019-12-08 17:00] VITALS: BP 119/73
--- NOTE | 2019-12-08 19:40 | NUR ---
Opening Shift Note Assumed care of patient, awake and alert. No S/S of distress/SOB or pain noted. Instructed on POC and to call for assist PRN. Bed is in lowest locked position with bed rails up x2 and call light is within reach of the patient.
[2019-12-08] MEDS: traZODone HCL 50 MG TAB PO SCH (21:40)
[2019-12-08] MEDS ORDERED: PRAMIPEXOLE DIHYDROCHLORIDE MO 0.25 MG TAB ONE ×2 (21:52→21:53)
[2019-12-08] MEDS: PRAMIPEXOLE DIHYDROCHLORIDE MO 0.25 MG TAB PO SCH (21:54)
[2019-12-08 22:00] VITALS: BP 111/84
--- NOTE | 2019-12-08 23:00 | NUR ---
Wound care done: Wound care done. Patient tolerated well. No s/s of distress SOB or pain noted.
[2019-12-09] MEDS: HYDROcodone-ACET 10/325MG TAB PO PRN ×3 (01:32→15:07)
--- NOTE | 2019-12-09 03:39 | NUR ---
EMPTIED 2750ML OF YELLOW URINE FROM LUBIN CATHETER
[2019-12-09 05:00] VITALS: BP 103/72
[2019-12-09] MEDS: ACCU-CHEK COMFORT CURVE STRIP VI SCH ×3 (06:00→17:00)
[2019-12-09] MEDS: GABAPENTIN 300 MG CAP PO SCH ×2 (06:00→13:36)
[2019-12-09] MEDS: InsuLIN REG 1unit/0.01ml Soln (100units/ml) SC SCH ×3 (06:25→17:00)
--- NOTE | 2019-12-09 07:30 | NUR ---
Opening Shift Note Assumed care of patient, awake and alert. No S/S of distress or SOB, patient reports lower back pain of 6/10 will medicate per MD orders. Updated on POC and instructed to call for assistance as needed, patient verbalized understanding. Bed locked in lowest position, side rails up x2, call light is within reach. Safety precautions in place. Will continue to monitor q1hr and PRN.
[2019-12-09] MEDS: cefTRIAXone 1GM/50ML D5W 50 ML IV SCH (08:40)
[2019-12-09 08:46] VITALS: BP 110/64
[2019-12-09] MEDS: DOBUTamine 1000MCG/ML 250 ML IV SCH (09:42)
[2019-12-09] MEDS: TORSEMIDE 20 MG TAB PO SCH (09:42)
[2019-12-09] MEDS: POTASSIUM CHL 20 Meq TABLET PO SCH (09:43)
[2019-12-09] MEDS: PANTOPRAZOLE 40 MG TAB PO SCH (09:43)
[2019-12-09] MEDS: POLYETHYLENE GLYCOL 17 GM PWDR PO SCH (09:44)
[2019-12-09 13:00] VITALS: BP 106/74
--- NOTE | 2019-12-09 14:23 | NUR ---
Nutrition Followup Notes Pt wt is 82.6 kg Pt was awake with no relatives at bedside when this morning. Pt is with a 2gm Sodium diet, appetite is good aeb ave 81% PO intake over 4 meals. Pt stated she feels much better. Will continue to monitor PO status, skin status, pertinent labs and weight trends. Will f/u in 3-5 days. Est Energy needs BW 81 [id number] kcals (23-25 kcal/kgBW), Est Protein needs: 65-81 gms/day (0.8-1.0 gm/kgBW r/t elev RFT CKD WOUNDS). Will continue to monitor and reassess prn. LABS: Gluc 204 H, BUN 75 H, Cr 1.94 H, GFR 28 L GI: Pt had 1 BM on 12/07 per RN doc BS: 19 low risk. Refer to wound assessment report for full details. PES: Altered nutrition related lab values r.t current chronic medical condition aeb elev RFT hyperglycemia Comments 1) consider MVI/C bid 2) consider renal specific 70 gm protein along with current diet if RFT continue to be elev 3) continue current plan of care
[2019-12-09 15:37] LABS: BUN/Creatinine Ratio 33.3; Calcium 9.5 mg/dL (8.5-10.1); Potassium 4.2 mmol/L (3.5-5.1)
[2019-12-09 16:16] VITALS: BP 104/71
[2019-12-09 17:00] VITALS: BP 104/71
--- NOTE | 2019-12-09 17:50 | NUR ---
DISCHARGE HOME Discharge instructions given as ordered. Encourage to follow up with PMD as instructed. All questions and concerns addressed. Patient verbalized understanding. Medication reconciliation form completed and copy given to patient. IV removed with catheter intact, pressure dressing applied, marshall catheter removed. Telemetry unit returned to ICU. Patient taken to main lobby via wheelchair with all personal belongings, accompanied by staff. No distress noted at time of departure.
== END 2019-12-09 17:50 | disposition home or self-care (01) | DRG 91 ==
LOC: EDBD 20:01 → ER 20:04 → TELE 20:05 → TELE-WESTW 23:59
PROVIDERS: ADMIT Internal Medicine Cardiovascular Disease; ATTEND Internal Medicine Cardiovascular Disease
DX: G92 Toxic encephalopathy (principal); I50.33 Acute on chronic diastolic (congestive) heart failure; J96.90 Respiratory failure, unspecified, unspecified whether with hypoxia or hypercapnia; N17.9 Acute kidney failure, unspecified; I13.0 Hypertensive heart and chronic kidney disease with heart failure and stage 1 through stage 4 chronic kidney disease, or unspecified chronic kidney disease; E86.0 Dehydration; E87.6 Hypokalemia; E11.22 Type 2 diabetes mellitus with diabetic chronic kidney disease; N18.2 Chronic kidney disease, stage 2 (mild); D64.9 Anemia, unspecified; M19.90 Unspecified osteoarthritis, unspecified site; E11.40 Type 2 diabetes mellitus with diabetic neuropathy, unspecified; E86.1 Hypovolemia; G89.4 Chronic pain syndrome; I27.29 Other secondary pulmonary hypertension; J44.9 Chronic obstructive pulmonary disease, unspecified; M54.16 Radiculopathy, lumbar region; M79.7 Fibromyalgia; M81.0 Age-related osteoporosis without current pathological fracture; Z82.49 Family history of ischemic heart disease and other diseases of the circulatory system; Z83.3 Family history of diabetes mellitus; Z91.14 Patient's other noncompliance with medication regimen; Z91.19 Patient's noncompliance with other medical treatment and regimen; E66.01 Morbid (severe) obesity due to excess calories; W18.39XA Other fall on same level, initial encounter; Y93.89 Activity, other specified; Y92.89 Other specified places as the place of occurrence of the external cause; Y99.8 Other external cause status; Z68.27 Body mass index [BMI] 27.0-27.9, adult; R55 Syncope and collapse
CPT/HCPCS: 36415; 70450; 71045; 80048; 80053; 81001; 82962; 83880; 84443; 84484; 85025; 85610; 85730; 87081; 87086; 87088; 87186; 93005; 96360; G0378; J0696; J1815